=== PATIENT | female | born 1955 | race Caucasian/White ===

== ENCOUNTER 2022-04-13 13:39 | Outpatient (CLI) | payer MEDICARE, BC, SELFPAY ==
--- NOTE | 2022-04-13 14:00 | CRLHL7_ITS ---
For Patients: As a result of the Century Cures Act, medical imaging exams and procedure reports are released immediately into your electronic medical record. You may view this report before your referring provider. If you have questions, please contact your health care provider. BILATERAL SCREENING MAMMOGRAM WITH COMPUTER-AIDED DETECTION AND TOMOSYNTHESIS TECHNIQUE: CC and MLO views were obtained. These mammographic images have been obtained using full-field digital technique. These mammographic images were interpreted with the benefit of computer-aided detection. Breast Tomosynthesis was used in this interpretation. COMPARISON FILM: 03/18/21, 01/10/20, 11/22/18. FINDINGS: The breasts are almost entirely fatty IMPRESSION: There is no radiographic evidence for malignancy. ASSESSMENT: BI-RADS Category 1: Negative RECOMMENDATION: Routine screening mammogram in 1 year. A lay language report of this examination will be provided to the patient. Conner Valdez M.D. Diagnostic Radiologist [email or web address] [place]/Dictated by: Conner Valdez MD @ 04/14/2022 1:01:00 PM (Electronically Signed)
== END 2022-04-13 13:40 | disposition home or self-care (01) ==
PROVIDERS: PCP Internal Medicine; Visit Provider Internal Medicine
DX: Z12.31 Encounter for screening mammogram for malignant neoplasm of breast (principal)
CPT/HCPCS: 77063; 77067

== ENCOUNTER 2022-09-21 09:43 | Outpatient (REF) | payer MEDICARE, BC, SELFPAY ==
[2022-09-21 10:16] LABS: Basophils Percent Auto 0.3 % (0.0-3.0); Eosinophils Percent Auto 3.4 % (0.0-7.0); Hematocrit 42.7 % (33.0-51.0); Hemoglobin* 13.8 gm/dL (12.0-16.0); Lymphocytes Percent Auto 31.8 % (20-44); Mean Corpuscular HGB Conc 32 gm/dL (32-36); Mean Corpuscular Hemoglobin 30 pg (26-34); Mean Corpuscular Volume 94 fL (80-100); Monocytes Percent Auto 6.4 % (0.0-11.0); Neutrophils Percent Auto 58.1 % (42.0-72.0); Platelet Count* 263 K/uL (140-440); RDW Coefficient of Variation % 12.9 % (11.5-15.5); Red Blood Count 4.56 m/uL (4.00-5.20); White Blood Count* 3.27 K/uL (4.50-11.00)
[2022-09-21 10:18] LABS: Slide Review Reflex No
[2022-09-21 10:21] LABS: Iron* 87 ug/dL (37-170)
[2022-09-21 10:31] LABS: Percent Iron Saturation 28 % (20-50); Total Iron Binding Capacity 311 ug/dL (265-497)
[2022-09-21 10:39] LABS: Vitamin D 25 Hydroxy* 72 ng/mL (30-80)
[2022-09-21 10:58] LABS: Ferritin* 32.5 ng/mL (11.1-264.0)
[2022-09-21 11:14] LABS: Albumin* 4.3 g/dL (3.3-5.0); Chloride* 107 mmol/L (96-114)
[2022-09-21 11:15] LABS: Potassium* 4.9 mmol/L (3.6-5.1); Sodium* 140 mmol/L (135-149)
[2022-09-21 11:17] LABS: Aspartate Amino Transferase* 34 U/L (12-35); Bilirubin Direct* 0.2 mg/dL (0.0-0.5); Bilirubin Total* 0.5 mg/dL (0.1-1.5); Blood Urea Nitrogen* 14 mg/dL (7-30); Carbon Dioxide* 27 mmol/L (20-32); Creatinine* 0.8 mg/dL (0.5-1.5); Estimated Glomerular Filt Rate 81 ml/min; Total Protein* 7.3 g/dL (6.0-8.3)
[2022-09-21 11:18] LABS: Alanine Aminotransferase* 26 U/L (4-35); Alkaline Phosphatase* 88 U/L (40-150); Calcium* 9.5 mg/dL (8.4-10.6); Glucose* 95 mg/dL (60-115)
[2022-09-21 12:07] LABS: Vitamin B12* 389 pg/mL (243-894)
[2022-09-23 02:15] LABS: Immunoglobulin A 169 mg/dL (68-408)
[2022-09-23 08:53] LABS: Folate, Serum 10.1 ng/mL (>=5.9)
[2022-09-23 11:15] LABS: Tissue Transglut Ab IgA <2 U/mL (0-3)
== END 2022-09-21 09:44 | disposition home or self-care (01) ==
LOC: NPINS 09:43
PROVIDERS: PCP Internal Medicine; Visit Provider Internal Medicine Gastroenterology
DX: K52.3 Indeterminate colitis (principal); R19.7 Diarrhea, unspecified; K59.00 Constipation, unspecified; R12 Heartburn; Z86.010 Personal history of colon polyps; Z13.21 Encounter for screening for nutritional disorder; E78.5 Hyperlipidemia, unspecified
CPT/HCPCS: 80048; 80076; 82306; 82607; 82728; 82746; 82784; 83540; 83550; 84443; 85025; 86364; 86480

== ENCOUNTER 2022-10-21 07:35 | Outpatient (CLI) | payer MEDICARE, BC, SELFPAY ==
--- OUTSIDE RECORDS SUMMARY | 2022-10-22 06:29 | XMS_ITS | Continuity of Care Document ---
Author Name Unknown Organization [facility] Address [address] [address] [place] [address] Phone Care Team Providers Care [facility] Cook Name Role Phone Lei BOOGIE, Filomena Unavailable Unavailable Allergies, Adverse Reactions, Alerts Substance Reaction Status Criticality adhesive tape Rash Active No Information latex ItchingItching Active No Informatio n adhesive Active No Information WARNIN allergy(ies) could not be collected because the type is not supported. Please contact the source practice for further details. Medications Medication Instructions Dosage Effective Dates (start - stop) Status Comments alendronate 35 mg tablet take 1 tablet by oral route every week in the morning, at least 30 min before first food, beverage, or medication of day 35 MG - Active mesalamine 400 mg capsule (with delayed release tablets inside) take 3 capsule by oral route 2 times every day 1200 MG - Active Vitamin D3 1,000 unit capsule take 1 Capsule by Oral route once 1 Capsule - Active omeprazole 20 mg capsule,delayed release take 1 capsule by oral route 2 times every day before a meal 20 MG - Active MULTIVITAMIN (unknown strength) one tablet twice a day Not Available - Active CALCIO KARON (unknown strength) take 1 by Oral route 2 times every day Not Available - Active Ultra Berkley Plus 15 billion cell-170 mg capsule one twice a day - Active EPA-DHA 720 (unknown strength) 4 tablets once a day Not Available - Active bupropion HCl SR 150 mg tablet,12 hr sustained-release take 1 tablet by oral route 2 times every day 150 MG - Active Procedures Procedure Date New Level 4 Offic/outpt E&m Estab Low-mod 9 Routine Serum Collection Bld Ct; Hg/pltlt Ct Auto/compl 19 Comp Metabolic Panel Ferritin Bilirubin; Direct Iron Iron Binding Capacity Cyanocobalamin Vitamin D; 25 Hydroxy Colonoscopy Flex; W/remov Les- Colonoscopy Flex; W/bx 1/mx Level Iv-surg Path Gross/micro 18 Offic/outpt E&m Estab Mod-hi 2 18 Routine Serum Collection Gg; Iga, Igd, Igg, Igm, Ea Bld Ct; Hg/pltlt Ct Auto/compl 18 Magnesium Bilirubin; Direct Comp Metabolic Panel Offic/outpt E&m Estab Low-mod 7 Routine Serum Collection Iron Iron Binding Capacity Cyanocobalamin Folic Acid; Serum Ferritin Vitamin D; 25 Hydroxy Bilirubin; Direct Comp Metabolic Panel Bld Ct; Hg/pltlt Ct Auto/compl 17 Offic/outpt E&m Estab Low-mod 6 Offic/outpt E&m Estab Low-mod 6 Offic/outpt E&m Estab Low-mod 5 Routine Serum Collection Creatinine; Bld Urea Nitro; Rolando Colonoscopy Flex; W/bx 1/mx Level Iv-surg Path Gross/micro 14 Offic Cons New/estab Mod Routine Serum Collection Bld Ct; Hg/pltlt Ct Auto/compl 14 Hepatitis A Antibody; Igg & Ig 14 Ag-immunoassay; Hep B Surface 4 Comp Metabolic Panel Folic Acid; Serum Cyanocobalamin Iron Iron Binding Capacity Ferritin Ugi Endo; Dx W/wo Collec Specm 11 Advance Directives Directive Yes / No Effective Date File Name No Information Encounters Encounter Description Practice Location Reason(s) For Visit Diagnoses Date Provider Providers Copied on Encounter [facility], [address] [address], [place], [place], [id number], [place] tel:[phone] [facility] No Information 3 Lei Butt. [address] [facility], [facility] [address], [place], [place], [id number] , [place]. tel: [phone] [facility] Level 4 [facility], [address] [address], [place], [id number], [place] tel:[phone] [facility] GI Symptoms or Concerns (chief complaint) Indeterminate colitisDiarrhea, unspecified typeConstipation, unspecified constipation typeHeartburnPerson al history of colonic polyps 3 Lei Butt. [address] [facility], [facility] [address], [place], [place], [id number] , [place]. tel: [phone] Referring Provider: Referral Self. [facility], [address] [address], [place], [place], [id number], [place] tel:[phone] [facility] No Information 3 Lei Butt. [address] [facility], [address], [place], [place], [id number] , [place]. tel: [phone] [facility], [address] [address], [place], [place], [id number], [place] tel:[phone] [facility] No Information 3 Neto Ayala. [address] [facility], [address], [place], [place], [id number] , [place]. tel: [phone] [facility], [address] [address], [place], [id number], [place] tel:[phone] [facility] No Information 0 Lei Butt. [address] [facility], [facility] [address], [place], [id number] , [place]. tel: [phone] [facility], [address] [address], [place], [id number], [place] tel:[phone] [facility] Inflammatory bowel diseases (IBD) 9 Lei Butt. [address] [facility], [facility] [address], [place], [id number] , [place]. tel: [phone] Offic/outpt E&m Estab Low-mod [facility], [address] [address], [place], [id number], [place] tel:[phone] [facility] GI Symptoms or Concerns (chief complaint) Inflammatory bowel diseases (IBD)Personal history of colonic polypsDietary counseling and surveillance 9 Lei Butt. [address] [facility], [facility] [address], [place], [id number] , [place]. [phone] Referring Provider: Mckinley Randall, [address] [place] [address], [address]. tel:[phone] [facility], [address] [address], [place], [id number], [place] tel:[phone] [facility] Colorectal polypsPersonal history of colonic polypsOther specified diseases of intestineConstipati on, unspecifiedBenign neoplasm of ascending colonBenign neoplasm of ascending colonPersonal history of colonic polyps 8 Lei Butt. [address] [facility], [facility] [address], [place], [id number] , [place]. [phone] Referring Provider: Referral Self. [facility], [address] [address], [place], [id number], [place] tel:[phone] [facility] Leukopenia, unspecified type 8 Lei Butt. [address] [facility], [address], [place], [place], [id number] , [place]. tel: [phone] Offic/outpt E&m Estab Mod-hi 2 [facility], [address] [address], [place], [id number], [place] tel:[phone] [facility] GI Symptoms or Concerns (chief complaint) IBD (inflammatory bowel disease)Constipatio n, unspecified constipation typeDietary counseling and surveillance 8 Lei Butt. [address] [facility], [address], [place], [id number] , [place]. tel: [phone] Referring Provider: Referral Self. [facility], [address] [address], [place], [place], [id number], [place] tel:[phone] [facility] IBD (inflammatory bowel disease) 7 Lei Butt. [address] [facility], [address], [place], [place], [address] , [place]. tel: [phone] Offic/outpt E&m Estab Low-mod [facility], [address] [address], [place], [place], [id number], [place] tel:[phone] [facility] GI Symptoms or Concerns (chief complaint) IBD (inflammatory bowel disease)Dietary counseling and surveillance 7 Lei Butt. [address] [facility], [address], [place], [place], [address] , [place]. tel: [phone] Referring Provider: Referral Self. Offic/outpt E&m Estab Low-mod [facility], [address] [address], [place], [id number], [place] tel:[phone] [facility] GI Symptoms or Concerns (chief complaint) IBD (inflammatory bowel disease)Dietary counseling and surveillance 6 Lei Butt. [address] [facility], [address], [place], [address] , [place]. [phone] Referring Provider: Mckinley Randall, [address] [place], [address]. tel:[phone] Offic/outpt E&m Estab Low-mod [facility], [address] [address], [place], [id number], [place] tel:[phone] [facility] GI Symptoms or Concerns (chief complaint) IBD (inflammatory bowel disease)Dietary counseling and surveillance 6 Lei Butt. [address] [place] [address], [place], [place], [id number] , [place]. tel:[phone] Referring Provider: Mckinley Randall, [address] [place], [address]. tel:[phone] Offic/outpt E&m Estab Low-mod [facility], [address] [address], [place], [id number], [place] tel:[phone] [facility] GI Symptoms or Concerns (chief complaint) Ulcerative Colitis NosRectal bleedingAbdominal pain, right lower quadrantDietary Surveil/financial aid counselor 5 Carolina Puente. [address] [place] [address], [id number] , [place]. [phone] Referring Provider: Mckinley Randall, [address] [place], [address]. tel:[phone] [facility], [address] [address], [facility], [id number], [place] tel:[phone] [facility] Colon polypUlcerative Colitis NosBenign Neoplasm Colon Mar- 4 Lei Butt. [address] [place] [address] [place], [id number] , [place]. [phone] Referring Provider: Mckinley Randall, [address] [place], [address]. tel:[phone] [facility], [address] [address], [facility], [address], [place] tel:[phone] [facility] IBD 4 Lei Butt. [address] [facility], [facility] [address], [place], [id number] , [place]. tel: [phone] Offic Cons New/estab Mod [facility], [address] [address], [place], [id number], [place] tel:[phone] [facility] GI Symptoms or Concerns (chief complaint) IBDDiarrheaGenerali sed abdominal painRectal bleedingDietary Surveil/financial aid counselor 4 Lei Butt. [address] [facility], [facility] [address], [place], [id number] , [place]. tel: [phone] Referring Provider: Mckinley Randall, [address] [place] [address], [address]. tel:[phone] [facility] [place], [address] [address], [place], [id number], [place] tel:[phone] [facility] No Information 1 Lizeth Fernandes. [address] [facility], [facility] [address], [place], [id number] , [place]. tel: [phone] Referring Provider: Vaughn Lima, [address], [address]. tel:[phone] Family History Family Member Type Diagnosis Age At Onset Daughter Problem (finding) Asthma Daughter Problem (finding) Crohn's disease Sister Problem (finding) gallbladder disease Mother Problem (finding) Asthma Daughter Problem (finding) Alive and well Mother Problem (finding) Diverticular disease Sister Problem (finding) Colon polyps Mother Problem (finding) Irritable bowel syndrom e Father Problem (finding) Cancer, lung Sister Problem (finding) Diverticular disease Sister Problem (finding) Cancer, esophageal Sister Problem (finding) malignant neoplasm of o vary Mother Problem (finding) Colon polyps Son Problem (finding) Crohn's disease Sister Problem (finding) Cancer, lung Sister Problem (finding) cancer of colon Sister Problem (finding) Irritable bowel disease Immunizations Vaccine Date Status Comments SARS-COV-2 (COVID-19) vaccin e, mRNA, spike protein, LNP, preservative free, 100 mcg/0.5mL dose or 50 mcg/0.25mL dose administered Note: [facility] bi -directional interface ; Source: Other Registry SARS-COV-2 (COVID-19) vaccin e, mRNA, spike protein, LNP, preservative free, 100 mcg/0.5mL dose or 50 mcg/0.25mL dose administered Note: [facility] bi -directional interface ; Source: Other Registry SARS-COV-2 (COVID-19) vaccin e, mRNA, spike protein, LNP, preservative free, 100 mcg/0.5mL dose or 50 mcg/0.25mL dose administered Note: [facility] bi -directional interface ; Source: Other Registry tetanus toxoid, reduced diphtheria toxoid, and acellular pertussis vaccine, adsorbed administered Note: [facility] b i-directional interface ; Source: Other Registry tetanus and diphtheria toxoi ds, adsorbed, preservative free, for adult use (5 Lf of tetanus toxoid and 2 Lf of diphtheria toxoid) administered Note: [facility] bi-direct ional interface ; Source: Other Registry Engerix-B administered Note: [facility] bi-d irectional interface ; Source: Other Registry hepatitis B vaccine, unspeci fied formulation administered Source: Other Provid er Engerix-B administered Note: [facility] bi-d irectional interface ; Source: Other Registry hepatitis B vaccine, unspeci fied formulation administered Source: Other Provid er Engerix-B administered Note: [facility] bi-d irectional interface ; Source: Other Registry Hep B, adult, 3 dose administered Source: Other Provider Payers Payer name Insurance type Covered libertarian ID Authoriza tion(s) Medicare NGS MB [id number] [employer] Of [facility] [id number] Social History Type Description Quantity Date Captured Comments Alcohol Use Details Unknown Caffeine Use Details Unknown Tobacco Use Status No Information Mar-14-2023 Smoking Status No Information Sex Female Chief Complaint And Reason For Visit No Information Reason For Referral Reason For Referral No Information Plan Of Treatment Date Type Action Status Goal Lifestyle education regardin g diet completed Goal Lifestyle education regardin g diet completed Goal Lifestyle education regardin g diet completed Goal Lifestyle education regardin g diet completed Goal Lifestyle education regardin g diet completed Goal Lifestyle education regardin g diet completed Goal Lifestyle education regardin g diet completed Referral Ordered: Hepatic Function Panel Appointment date/timeframe: 09/27/2022 ordered Referral Ordered: Thyroid [place] Profile Appointment date/timeframe: 09/27/2022 ordered Referral Ordered: Folic Acid Appointment date/timeframe: 09/27/2022 ordered Referral Ordered: Iron/TIBC Appointment date/timeframe: 09/27/2022 ordered Referral Ordered: QuantiFERON TB Gold Plus Appointment date/timeframe: 09/27/2022 ordered Referral Ordered: EGD Appointment date/timeframe: 10/25/2022 ordered Referral Ordered: Vitamin D, 25-Hydroxy Appointment date/timeframe: 09/27/2022 ordered Referral Ordered: Vitamin B12 Serum Appointment date/timeframe: 09/27/2022 ordered Referral Ordered: BMP Appointment date/timeframe: 09/27/2022 ordered Referral Ordered: Ferritin Appointment date/timeframe: 09/27/2022 ordered Referral Ordered: CBC W/diff, Whole Blood Appointment date/timeframe: 09/27/2022 ordered Referral Ordered: Celiac: TTG IgA + Total IgA Appointment date/timeframe: 09/27/2022 ordered Referral Ordered: Vitamin B12 Appointment date/timeframe: 06/02/2019 ordered Referral Ordered: referred to 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 The patient was last seen in GI Clinic in March 2019. 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 This seemed to involve her rectosigmoid colon. She had her last colonoscopy in 2017, which revealed 2 sessile serrated adenomas and otherwise normal-appearing TI and colon. She also had sessile serrated adenoma in the cecum in 2013. The patient reports that she stopped taking mesalamine in 2019 around December of that year because she thought it was making her constipated. She has had baseline intermittent constipation for many years, however. The patient reports that she continues to have occasional constipation and occasional diarrhea, but does not have any consistent symptoms. She denies any rectal bleeding or abdominal pain or rectal urgency. She reports some occasional bloating. She reports that she does have chronic heartburn and she has been on omeprazole 20 mg twice daily for many years. She reports that she may have been told she had Fernandez's esophagus in the past, we have no record of this and she did not mention having Fernandez's esophagus previously. The patient reports her sister of esophageal cancer in February 2022. The patient reports her last upper endoscopy was at [facility] in 2010 or 2009 or 2011. GI Symptoms or Concerns The mina harrison is a 63-year-old female who is here for followup with indeterminate colitis diagnosed at the [facility] in 2010. The patient's intermittent colitis appeared to involve her rectosigmoid colon. Her last colonoscopy here was in June 2018 to the ileum and 2 sessile serrated adenomas were removed, but the terminal ileum and colon appeared otherwise normal and random colon biopsies throughout the colon were normal. She had a colonoscopy in 2013 that revealed inactive rectosigmoid inflammation. She also had a sessile serrated adenoma removed from the cecum in 2013. Her MR enterography from September 2016 did not reveal any active bowel inflammation. She reports she has overall been doing quite well on Lialda 4.8 g daily. She denies any GI symptoms at this time. She reports 1 to 2 formed bowel movements per day and denies any abdominal pain, rectal bleeding, diarrhea, rectal urgency or any other GI symptoms. She reports that she and her [place] GI Symptoms or Concerns The symp toms began 7 years ago. The symptoms are reported as being mild. The symptoms occur randomly. The location is lower colon. Aggravating factors include nothing. Relieving factors include lialda. She states the symptoms are chronic and are stable. The patient is 63-year-old female who is here for followup of indeterminate colitis. She was last seen in GI Clinic in April 2017. 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 Her disease seemed to involve the lower colon. Her last colonoscopy was in 2013 and showed inactive inflammation of the rectosigmoid colon. She also had a sessile-serrated adenoma removed from the cecum in 2013. Her last MR enterography was in September 2016. It did not reveal active inflammation. The patient reports she is overall doing well. She reports over the past 3 to 4 months, she has had some intermittent constipation that is relieved with MiraLax. She denies any significant diarrhea, rectal bleeding, abdominal pain, or GI Symptoms or Concerns The symp toms began 6 years ago. The symptoms are reported as being mild. The symptoms occur randomly. The location is colon. Aggravating factors include nothing. Relieving factors include lialda. She states the symptoms are chronic and are controlled. The patient is a 62-year-old female who is here for followup of inflammatory bowel disease. The patient was last seen in GI Clinic in March 2016. 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 Her last colonoscopy 2013 revealed some inactive inflammation in the rectosigmoid colon, but otherwise colon biopsies were unrevealing. She did have one small SSA removed from the cecum at that time. The patient does report that when she was initially diagnosed with indeterminate colitis that the inflammation was in the lower part of her colon. The patient's last MR enterography was in September 2016 and was unremarkable. The patient reports she is feeling well and denies any significant GI symptoms at this time. GI Symptoms or Concerns The symp toms began 5 years ago. The symptoms are reported as being mild. The symptoms occur randomly. The location is colon. Aggravating factors include nothing. Relieving factors include lialda. She states the symptoms are chronic and are controlled. The patient is 60-year-old female who is here for followup of indeterminate colitis. The patient was diagnosed with inflammatory bowel disease in 2010. She has most recently been on Lialda 4.8 g daily and is doing quite well. She denies any significant GI symptoms at this time. She reports she is having one to three formed bowel movements per day. She denies any abdominal pain or rectal bleeding or rectal urgency or unintentional weight loss. She reports rare nausea, but no vomiting. She denies any dysphagia or any other GI symptoms. She denies taking NSAIDs. She reports she is taking calcium and vitamin D. She reports that her primary care provider checked her vitamin D level relatively recently. GI Symptoms or Concerns The symp toms began 5 years ago. The symptoms are reported as being mild. The symptoms occur randomly. The location is rectosigmoid colon. Aggravating factors include nothing. Relieving factors include lialda. She states the symptoms are chronic and are stable. The patient is a 60-year-old female who is here for followup of inflammatory bowel disease. I last saw patient in GI Clinic in January 2014. She was also seen by Cindi Aguirre in July 2014. Patient was diagnosed with inflammatory bowel disease in 2010. It was unclear if she had ulcerative colitis or Crohn's disease. She reports that when she was seen at the [facility], they were unsure which one she had. It is unclear why Crohn's disease was brought up. She denies any perianal disease or fistulas or abscesses. Previous to her first visit with us, patient had been previously treated with naltrexone and prednisone tapers. After seeing us, we performed a CT enterography that revealed possible rectosigmoid inflammation. S GI Symptoms or Concerns Alize Martinez is a pleasant 59-year-old woman with inflammatory bowel disease, thought to have ulcerative colitis diagnosed in 2010 who presents to clinic for evaluation of abdominal pain and rectal bleeding.The patient reports a two-week episode between and june of bloating and abdominal pain across her lower quadrants. She also noticed red blood per rectum during this 2 week period with rectal itching. She was not experiencing any diarrhea however. Her symptoms resolved spontaneously, at that time she did make an appointment here in [place] [facility]. On top of her bloating and lower abdominal pain, the patient does describe a sharp right lower quadrant sensation. It comes on in unpredictable fashion and then does turn into a dull pain. Her pain does not radiate anywhere. She has not had any fevers, nausea, or vomiting. She does mention having an occasional mouth sore a couple of months ago which has since resolved. The patient is maintaining her weight.M GI Symptoms or Concerns The symp toms began 3 years ago. The symptoms are reported as being moderate. The symptoms occur daily. Aggravating factors include nothing. Relieving factors include prednisone 40 mg. She states the symptoms are chronic and are uncontrolled. The patient is a 58-year-old female who is here for evaluation of inflammatory bowel disease. The patient reports she was diagnosed with inflammatory bowel disease in 2010. She reports she was eventually seen at the [facility] who confirmed inflammatory bowel disease, but could not differentiate between Crohn's disease and ulcerative colitis. The patient reports she has only been treated with naltrexone and prednisone tapers intermittently. She reports that she has had ongoing symptoms since August 2013. She has been on two eight-week prednisone tapers. She reports that she tends to feel better on a higher dose of prednisone, but when she gets down to 20 mg of prednisone daily she has recurrence of symptoms. She reports she was last o Functional Status Date Functional Assessmen t No Information Instructions Date Instruction Additional Infor krishnahenrry -Continue omeprazole 20 mg twice daily-Will request results of last EGD reportedly performed at [facility] in 2009 or 2010-EGD to check for Fernandez's esophagus, with duodenal biopsies Related to Heartburn -Labs as ordered-Vanessa robin did not want to restart mesalamine at this time and would like to wait for colonoscopy results-Colonoscopy with double prep with TI eval and random colon biopsies for dysplasia surveillance-MR enterography to assess for small bowel disease-Avoid NSAIDs-Calcium and vitamin D-Patient has declined any vaccines (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)-Miralax as needed for inlxsrevibvh-Pwdoae-hp in 2 months, after all testing completed Related to Indeterminate colitis -Repeat colonoscopy with double prep with TI eval and random colon biopsies in 06/2023 Related to Personal history of colonic polyps -Labs as ordered-Con tinue lialda 4.8 grams daily-Avoid NSAIDs-Calcium and vitamin D-Patient declined any vaccines (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)-Miralax as needed for gnraoqrgyukd-Hoziga-bu in 1 year Related to Inflammatory bowel diseases (IBD) Lifestyle education regarding di et Related to Dietary counseling and surveillance Colon Cancer Prevention Related to Colorectal polyps Colon Polyps Related to Color ectal polyps -Labs as ordered-Con tinue lialda 4.8 grams daily-Avoid NSAIDs-Calcium and vitamin D-Patient declined any vaccines (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)-Repeat colonoscopy with double prep with TI intubation and random colon biopsies due to new intermittent constipation for 3-4 months, history of cecal SSA in 2013, and to reassess microscopic disease extent-Miralax as needed for eowxjglsxheg-Wqxvkz-rx in 2 months, after colonoscopy Related to IBD (inflammatory bowel disease) Lifestyle education regarding di et Related to Dietary counseling and surveillance -Labs as ordered-Con tinue lialda 4.8 grams daily-MRE to reasssess for active bowel inflammation in 1 year-Avoid NSAIDs-Calcium and vitamin D-Patient declined any vaccines (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)-Repeat colonoscopy with TI intubation and random colon biopsies in fall 2018 due to history of cecal SSA in 2013 and to reassess microscopic disease pbbgkr-Woidmf-lm in 1 year Related to IBD (inflammatory bowel disease) Lifestyle education regarding di et Related to Dietary counseling and surveillance -Continue lialda 4.8 grams daily-MRE to reasssess for active bowel inflammation in 6 months-Avoid NSAIDs-Calcium and vitamin D-Patient declined any vaccines (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)-Follow-up in 6 months Related to IBD (inflammatory bowel disease) Lifestyle education regarding di et Related to Dietary counseling and surveillance -Continue lialda 4.8 grams daily-MRE to reasssess for active bowel inflammation-Avoid NSAIDs-Calcium and vitamin D-Patient declined any vaccines (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)-If MRE shows active inflammation in the distal colon again, then would consider flex sig with biopsies for further zzalmyjmek-Fcrpvd-ll in 2 months Related to IBD (inflammatory bowel disease) Lifestyle education regarding di et Related to Dietary counseling and surveillance MRI Enterography WIT HOUT And WITH Contrast Lifestyle education regarding di et Related to Dietary surveillance and counseling Colon Cancer Prevention Related to Colon polyp Colon Polyps Related to Colon polyp -Labs as ordered-Sto infectious studies-CT enteroraphy-Colonoscopy with TI and colon biopsies-Lialda 4.8 grams daily-Discontinue naltrexone-Avoid NSAIDs-Calcium and vitamin D-Patient declined influenza and pneumovax vaccines-Bone density scan in near jlgxwb-Ugjccz-qx in 1 month Related to Rectal bleeding Abdomen and Pelvis CT WITH Contr ast Related to Colitis Unspecified/IBD Colonoscopy Related to Colit is Unspecified/IBD Lifestyle education regarding di et Related to Dietary surveillance and counseling Abdomen and Pelvis CT WITH Contr ast Colonoscopy Assessments Type Assessment Date No Information Patient Care Teams Name Effective Dates (start - stop) Status Members No Information
== END 2022-10-21 07:36 | disposition home or self-care (01) ==
LOC: NFLDREF 10-22 06:27
PROVIDERS: PCP Internal Medicine; Referring Provider Internal Medicine; Visit Provider Internal Medicine
DX: E78.5 Hyperlipidemia, unspecified (principal)
CPT/HCPCS: 80061

== ENCOUNTER 2023-04-04 09:15 | Outpatient (RCR) | payer MEDICARE, BC, SELFPAY ==
--- NOTE | 2023-02-16 11:39 | PT.OPEX ---
PT [facility] Eval PT [facility] Outpatient Eval Start: 02/15/23 07:54 Freq: Status: Active Protocol: Document 02/15/23 07:54 AMS (Rec: 02/15/23 14:45 AMS [id number]) E-signed By Chantell Gann PT Physical Therapy Outpatient Evaluation Insurance Information Insurance Name Medicare B,Blue Cross/Blue Shield Medical Diagnosis Spondylosis without myelopathy or radiculopathy, lumbar region Right lumbar radiculopathy Treating Diagnosis Low back pain, unspecified Lumbar radiculopathy Muscle weakness Right hip pain Referring MD Ad Washington Subjective Subjective Alize returns for follow-up evaluation of pain in her low back, hip and thigh. She has a history of chronic low back pain that has progressed to involve her anterior hip, groin, and thigh over the past couple of months. She now localizes pain to the low back and states that it can radiate into her lateral hip anterior hip and anterior thigh down to the knee. Symptoms are aggravated by movement but can be present with both sitting and weight- bearing activities. She denies any history of injury and has no associated numbness or tingling. She has been taking ibuprofen and Tylenol on an as-needed basis for pain control, but symptoms are not improving. -Ad [place], 01/26/23, confirmed by patient Patient presents to physical therapy with 3.5-month history of low back pain and right hip pain. She has had chronic low back pain for her whole adult life, but the pain is now radiating down her anterior thigh. She also localizes the pain to the right anterior groin, wrapping around to the lateral hip just posterior to the greater trochanter. Pt states it feels like a groin pull. Denies catching or locking sensations , but endorses episodes of hip feeling like it will give way. The symptoms started insidiously without any trauma or history to the low back/ hip. She describes the pain as aching, but it can also be shooting or sharp. PMH includes bilateral knee replacement 10 years ago, osteopenia, and latex allergy. Aggravating factors include walking, bending, lifting, and going up and down stairs. Symptoms are improving, could barely walk when symptoms first presented. Denies numbness and tingling sensations. With walking farther than 8-10 blocks, pain will radiate down to anterior knee. Easing factors include icing, heating, THC gummies every night for sleep, Advil occasionally (knows she is not supposed to take this due to IBS but does sometimes), etc and chiropractor for her back. Sleep is unaffected due to THC gummies. Not currently exercising, but before symptoms, she enjoyed walks with her dogs a few times per day and did swim aerobics at the [facility] [facility]. She would like to return to these activities. Pain Comments 7/10 at worst, 2-3/10 at best Date of Last Physician Visit 01/26/23 Current Work Status Retired Precautions Treatment Precautions/Contraindications Osteopenia, latex and adhesive allergy Weight Bearing Status Full Weight Bearing Therapy Limitations/Systems Review Not Limited Objective Other/Pertinent Objective IMAGING: AP and lateral lumbar spine x- rays performed 11/21/2022 were reviewed. These demonstrate mild scoliosis of the lumbar spine with mild to moderate multilevel degenerative changes. No acute osseous abnormalities. AP pelvis and cross-table lateral x-rays of the right hip performed 11/21/2022 were reviewed. These demonstrate mild degenerative changes of both hips with moderate degenerative changes of the visualized aspects of the lumbar spine. No acute osseous abnormalities. Specifically, there is no cortical thickening involving the proximal femur other signs of for proximal femoral stress fracture. -Jay Jay Washington, 01/26/23 Posture Assessment: Mildly forward flexed posture at thoracic spine Gait Assessment: Patient ambulates with normal, heel- toe gait, no foot drop noted or antalgic gait. BALANCE Single leg stance: 10+ seconds bilaterally FUNCTIONAL MOBILITY Double leg squat: WNL, right anterior groin pain noted at 45 deg Step down/SL squat: Not assessed LUMBAR ROM Flexion: 100%, pain-free Extension: 100%, pain-free Right Sidebendin%, pain- free Left Sidebendin%, pain- free Right rotation: 100%, pain- free Left rotation: 100%, pain-free REPEATED MOVEMENTS: Lumbar flexion: No change in symptoms Lumbar extension: No change in symptoms HIP ROM (R/L) Flexion: 110*/110, *pain at end range passively and actively Extension: 10/10 Internal Rotation: 15/15 External Rotation: 35/35 Abduction: WNL LE MMT Hip flexion (seated): R 2/5 L 5/5; able to perform standing september Hip Extension: R 5/5 L 5/5 Hip abduction: R 4/5 L 5/5 Hip adduction: R 5/5 L 5/5 Knee extension: R 5/5 L 5/5 Knee Flexion: R 5/5 L 5/5 Dorsiflexion/heel walk: R 5/5 L 5/5 Plantarflexion (unilateral heel raises): R 10 reps, L 15 reps Great Toe Extension: R 5/5 L 5 /5 Abdominal Strength: No pain with resisted sit up MYOTOMES Hip flexion (L2): R 2/5 L 5/5 Knee extension (L3): R 5/5 L 5 /5 Dorsiflexion/heel walk (L4): R 5/5 L 5/5 Great Toe Extension (L5): R 5/ 5 L 5/5 Plantarflexion/toe walk (S1):R 4/5 L 4/5 DERMATOMES Not assessed formally JOINT MOBILITY/PALPATION TTP noted just posterior to greater trochanter, over ASIS, and lateral superior thigh. No TTP with lumbar posterior- anterior spring testing, mobility WNL. No TTP over buttocks/gluteals or lumbar paraspinals. SPECIAL TESTS -Straight leg raise: - -Crossed straight leg raise: - -Slump test: - SI/HIP tests -KRISH: + right for groin/ lateral hip pain -FADIR: + right for groin/ lateral hip pain -Scour: - -Log roll: - -Stinchfield's: + right for groin/lateral hip pain -30-second SLS: + for right groin pain -Femoral nerve tension test: + right TX: Patient was educated on anatomy, physiology as it relates to current condition and HEP with use of handout/ [employer]. Patient verbalizes understanding and agrees with POC/goals Education: -Soreness rules with goal of symptoms returning to baseline within 24 hours and by that evening Pt educated in the following exercises to improve range of motion, tissue tolerance, and/ or strength with verbal/ tactile cues as necessary: Access Code: [email or web address] URL: [email or web address] Date: 02/15/2023 Prepared by: Chantell Gann Exercises - Sidelying Femoral Nerve Gary - Top Leg - 1 x daily - 7 x weekly - 3 sets - 5-7 reps - Long Sitting Isometric Hip Abduction with Ball at Wall - 1 x daily - 7 x weekly - 3 sets - 30-45 secibds hold - Supine September - 1 x daily - 4 x weekly - 3 sets - 10 reps Functional Test Performed & Score LEFS: 32/80, 40% Assessment Assessment/Impression Pt is a 67 -year-old female who presents with concerns of chronic midline low back pain with acute radiating right groin and thigh pain and moderate to high severity and irritability. Signs and symptoms are likely indicating / consistent with potential L2-L3 lumbar radiculopathy and potential coexisting intra- articular hip pathology. Pain radiates from anterior groin to lateral hip and down the anterior thigh when she walks longer than 8-10 blocks. On exam, patient also demonstrates notable objective findings including full and pain-free lumbar ROM, positive femoral nerve tension and intra-articular hip tests, significantly decreased hip strength, specifically of the hip flexors (L2 myotome), and pain with short-lever hip abduction and active and passive hip flexion, leading to difficulties with walking more than 8-10 blocks, water aerobics, squatting, lifting, going up and down stairs, running, and rolling in bed. Pt demonstrates tendency to substitute hip flexors for gluteus medius. Does not demonstrate strong directional preference during session; unable to reproduce anterior thigh pain with exception of femoral nerve tension test. Discussed soreness guidelines for return to short distance walking and gentle aerobic activity like recumbent biking as symptoms allow. Patient is appropriate for skilled physical therapy services to address the above deficits. Pt was agreeable with plan of care and goals established. Primary Functional Limitations walking more than 8-10 blocks, water aerobics, squatting, lifting, going up and down stairs, standing for longer than 1 hour, running, and rolling in bed Plan of Care Rehabilitation Potential Good Physical Therapy Goals In 2 sessions: 1. Pt will demonstrate consistent HEP compliance to ensure progress in reaching established goals during course of care. In 8-12 sessions: 2. Patient will walk > 1 mile with <2/10 symptoms to allow for return to recreational activities. 3. Patient will stand for > 1 hour with <2/10 symptoms to allow for return to walking longer distances. 4. Patient will improve LEFS by 20% to demonstrate meaningful improvement in symptoms. 4. Coordination/Communication With Referral Source Treatment Plan/Direct Interventions Gait Training,Joint Mobilization,Manual Therapy, Neuromuscular Re-ed,Self-Care/ Home Management,Therapeutic Activities,Therapeutic Exercises,Traction (Mechanical ) Frequency/Duration 1x/week for 12 weeks Patient Will Be Discharged From Therapy Completion of LTG(s), Independent w/HEP, Independently Progressing Evaluation Billing Untimed Code Treatment Minutes 30 Complexity Moderate Certification Information Initial Certification Date 02/15/23 Ending Certification Date 05/11/23 Provider Signature Shows Agreement With POC & Medical Necessity Physician Signature & Date Requested Please Sign/Date Here Physician Comment/Change : Physician NPI Number #
== END 2023-04-24 09:42 | disposition home or self-care (01) ==
PROVIDERS: PCP Internal Medicine; Visit Provider Orthopaedic Surgery
DX: M47.816 Spondylosis without myelopathy or radiculopathy, lumbar region (principal); M54.16 Radiculopathy, lumbar region; M54.50 Low back pain, unspecified; M62.81 Muscle weakness (generalized); M25.551 Pain in right hip; Z51.89 Encounter for other specified aftercare
CPT/HCPCS: 97110; 97112; 97140; 97162

== ENCOUNTER 2023-05-24 11:46 | Outpatient (REF) | payer MEDICARE, BC, SELFPAY ==
[2023-05-24 12:22] LABS: Basophils Percent Auto 0.3 % (0.0-3.0); Eosinophils Percent Auto 5.4 % (0.0-7.0); Hematocrit 38.7 % (33.0-51.0); Hemoglobin* 12.7 gm/dL (12.0-16.0); Lymphocytes Percent Auto 28.3 % (20-44); Mean Corpuscular HGB Conc 33 gm/dL (32-36); Mean Corpuscular Hemoglobin 32 pg (26-34); Mean Corpuscular Volume 97 fL (80-100); Monocytes Percent Auto 8.4 % (0.0-11.0); Neutrophils Percent Auto 57.6 % (42.0-72.0); Platelet Count* 228 K/uL (140-440); RDW Coefficient of Variation % 12.5 % (11.5-15.5); Red Blood Count 3.99 m/uL (4.00-5.20); White Blood Count* 2.97 K/uL (4.50-11.00)
[2023-05-24 12:31] LABS: Slide Review Reflex No
[2023-05-24 13:21] LABS: Albumin* 4.2 g/dL (3.3-5.0)
[2023-05-24 13:24] LABS: Alanine Aminotransferase* 23 U/L (4-35); Alkaline Phosphatase* 82 U/L (40-150); Aspartate Amino Transferase* 33 U/L (12-35); Bilirubin Direct* 0.1 mg/dL (0.0-0.5); Bilirubin Total* 0.4 mg/dL (0.1-1.5); Total Protein* 7.2 g/dL (6.0-8.3)
[2023-05-24 14:09] LABS: Vitamin B12* 252 pg/mL (243-894)
[2023-05-24 14:49] LABS: Vitamin D 25 Hydroxy* 55 ng/mL (30-80)
== END 2023-05-24 11:47 | disposition home or self-care (01) ==
LOC: NPINS 11:46
PROVIDERS: PCP Internal Medicine; Visit Provider Internal Medicine Gastroenterology
DX: R05.3 Chronic cough (principal); K52.3 Indeterminate colitis; R12 Heartburn; Z86.010 Personal history of colon polyps; Z13.21 Encounter for screening for nutritional disorder; F41.1 Generalized anxiety disorder; E66.9 Obesity, unspecified; E78.5 Hyperlipidemia, unspecified; M85.80 Other specified disorders of bone density and structure, unspecified site; Z98.84 Bariatric surgery status
CPT/HCPCS: 80076; 82306; 82607; 85025

== ENCOUNTER 2023-06-26 10:30 | Outpatient (CLI) | payer MEDICARE, BC, SELFPAY ==
--- NOTE | 2023-06-26 11:00 | CRLHL7_ITS ---
For Patients: As a result of the Century Cures Act, medical imaging exams and procedure reports are released immediately into your electronic medical record. You may view this report before your referring provider. If you have questions, please contact your health care provider. Indication: Chronic cough Technique: Noncontrast CT chest Please note that all CT scans at this facility use dose modulation, iterative reconstruction, and/or weight-based dosing when appropriate to reduce radiation dose to as low as reasonably achievable. Comparison: 08/05/2014 CT abdomen and pelvis Findings: Right thyroid lobe nodule is present. Atherosclerotic changes are present. Subcentimeter mediastinal lymph nodes noted. Postoperative changes to the stomach. Adrenal glands normal. Degenerative changes are present at both shoulders. No pulmonary nodule. No airspace disease or fibrosis. No effusion or CHF. No pneumothorax. The airways are patent. Degenerative disc disease thoracic spine. No fracture. Impression: No airspace disease or fibrosis. No adenopathy. No endobronchial lesion. Right thyroid lobe nodule. Ultrasound thyroid recommended for further characterization. Please note that all CT scans at this facility use dose modulation, iterative reconstruction, and/or weight-based dosing when appropriate to reduce radiation dose to as low as reasonably achievable. Dictated by Conner Valdez MD @ 06/26/2023 12:37:10 PM (Electronically Signed)
--- NOTE | 2023-06-26 11:30 | CRLHL7_ITS ---
For Patients: As a result of the Cures Act, medical imaging exams and procedure reports are released immediately into your electronic medical record. You may view this report before your referring provider. If you have questions, please contact your health care provider. BILATERAL SCREENING MAMMOGRAM WITH COMPUTER-AIDED DETECTION AND TOMOSYNTHESIS TECHNIQUE: CC and MLO views were obtained. These mammographic images have been obtained using full-field digital technique. These mammographic images were interpreted with the benefit of computer-aided detection. Breast Tomosynthesis was used in this interpretation. COMPARISON FILM: 04/13/22, 03/18/21, 01/10/20. FINDINGS: There are scattered areas of fibroglandular density IMPRESSION: There is no radiographic evidence for malignancy. ASSESSMENT: BI-RADS Category 1: Negative RECOMMENDATION: Routine screening mammogram in 1 year. A lay language report of this examination will be provided to the patient. Conner Valdez M.D. Diagnostic Radiologist [email or web address] TORO/laith / be/Dictated by: Conner Valdez MD @ 06/26/2023 12:29:00 PM (Electronically Signed)
== END 2023-06-26 10:31 | disposition home or self-care (01) ==
LOC: CT 10:31
PROVIDERS: PCP Internal Medicine; Visit Provider Internal Medicine
DX: Z12.31 Encounter for screening mammogram for malignant neoplasm of breast (principal); R05.3 Chronic cough; E04.1 Nontoxic single thyroid nodule
CPT/HCPCS: 71250; 77063; 77067

== ENCOUNTER 2023-07-04 14:34 | Outpatient (CLI) | payer MEDICARE, BC, SELFPAY ==
--- NOTE | 2023-07-04 15:00 | CRLHL7_ITS ---
For Patients: As a result of the Cures Act, medical imaging exams and procedure reports are released immediately into your electronic medical record. You may view this report before your referring provider. If you have questions, please contact your health care provider. CLINICAL HISTORY: Incidental right thyroid nodule TECHNIQUE: Medina-scale and color Doppler images were acquired of the thyroid gland. FINDINGS: The right thyroid lobe measures 4.3 x 1.7 x 2.2 centimeters left thyroid lobe measures 3.9 x 1.0 x 1.2 centimeters Heterogeneous solid nodule in the right thyroid lobe measuring 2.2 x 1.6 by 1.9 centimeters with microcalcifications TR5. Hypoechoic irregular left thyroid nodule measuring 0.6 x 0.8 x 0.6 centimeters with microcalcifications TR5. Left 0.7 x 1.5 x 0.8 centimeter slightly irregular marginated heterogeneous left thyroid nodule TR 4. IMPRESSION: Multinodular thyroid. ACR TI-RADS [email or web address] TR1: Benign No FNA TR2: Not Suspicious No FNA TR3: Mildly Suspicious FNA if greater than or equal to 2.5 cm Follow if greater than or equal to 1.5 cm TR4: Moderately Suspicious FNA if greater than or equal to 1.5 cm Follow if greater than or equal to 1 cm TR5: Highly Suspicious FNA if greater than or equal to 1 cm Follow if greater than or equal to 0.5 cm Dictated by Mariela Subramanian MD @ 07/06/2023 1:11:52 PM (Electronically Signed)
== END 2023-07-04 14:35 | disposition home or self-care (01) ==
PROVIDERS: PCP Internal Medicine; Visit Provider Internal Medicine
DX: E04.1 Nontoxic single thyroid nodule (principal)
CPT/HCPCS: 76536

== ENCOUNTER 2023-07-25 10:52 | Outpatient (CLI) | payer MEDICARE, BC, SELFPAY ==
--- OUTSIDE RECORDS SUMMARY | 2023-07-25 10:58 | XMS_ITS | Clinical Summary ---
Author Name Unknown Organization [facility] Address [place], [place] [address] Care Team Providers Care Salesperson Surgical Appliances Name Role Phone Mckinley Reich MD Primary Care Provider [phone] Allergies Active Allergy Reactions Criticality Noted Date Comments Tolterodine Rash 12/03/2007 Patch; skinrash 11/16 allergy is from the adhesive on the patch , not the medication. Medications Medication Sig Dispensed Refills Start Date End Date Status FISH OIL 500 MG CAP 6 per day 0 12/03/2007 Activ e buPROPion (WELLBUTRIN XL) 150 mg Extended-Release tablet 0 12/28/2019 Active simvastatin (ZOCOR) 40 mg tablet Take 1 tablet by mouth once daily. 0 02/11/2020 Active omeprazole (PRILOSEC) 20 mg Delayed-Release capsule Take 1 capsule by mouth 2 times daily before meals. 0 03/03/2020 Active ketoconazole 2% topical (NIZORAL) cream MASSAGE INTO FEET TWICE DAILY UNTIL RESOLVED THEN REPEAT NEEDED 0 12/23/2020 Active Active Problems Problem Noted Date Diagnosed Date Tendonitis of left gluteus minimus 07/04/2016 Obesity, unspecified 12/03/2007 Dysthymic disorder 12/03/2007 Routine general medical exam ination at a health care facility 12/03/2007 Overview: Mammo 12/06/05 Pap 12/05/05 colonoscopy Other atopic dermatitis and related conditions 0 02/28/2007 Overview: Eye lids Unspecified nasal polyp 02/28/2007 Immunizations Name Administration Dates Next Due Td (Age >=7 Years) 07/18/1995 Tdap 12/03/2007 Family History Medical History Relation Name Comments Other Child chrohns disease Cancer-breast Maternal Aunt Alcohol/Drug Maternal Grandfather aunts a nd uncles also Alcohol/Drug Maternal Grandmother Cancer-breast Maternal Grandmother Allergies Mother Diabetes Mother Heart Disease Mother CHF Hyperlipidemia Mother Psychiatric illness Mother siblings also Other Son lupus Anesthesia Problem No Family History Blood Disease No Family History Relation Name Status Comments Child Father Alive Maternal Aunt Maternal Grandfather Maternal Grandmother Mother (Age 77) 11/2005; [place] F Son Social History Tobacco Use Types Packs/Day Years Used Date Smoking Tobacco: Never Smokeless Tobacco: Never Tobacco Cessation:Counseling Given: Yes Alcohol Use Standard Drinks/Week Comments Yes 0 (1 standard drink = 0.6 oz pur e alcohol) occas Sex and Gender Information Value Date Recorded Sex Assigned at Not on file Gender Identity Not on file Sexual Orientation Not on file Obstetrics History Para Term AB IAB SAB Ectopic Multiple Livin g Live Births 5 5 5 Date Outcome GA Total Labor Labor/2nd/3rd Weight Sex Delivery Anes PTL Jennyfer A1 A5 Name Cl in Para Para Para Para Para Last Filed Vital Signs Vital Sign Reading Time Taken Comments Blood Pressure 135/84 12/08/2021 10:07 AM CDT Pulse 71 01/26/2022 3:38 PM CDT Temperature 36.7 ??C (98 ??F) 01/26/2022 3:38 PM CDT Respiratory Rate - - Oxygen Saturation 96% 01/26/2022 3:38 PM CDT Inhaled Oxygen Concentration - - Weight 97.5 kg (215 lb) 06/10/2020 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 Height 164.6 cm (5' 4.8) 03/11/2016 9:37 AM CDT Body Mass Index 36 03/11/2016 9:37 AM CDT Plan of Treatment Health Maintenance Due Date Last Done Comments Depression screening for age 12+ 1968 Hepatitis C screening for age 18-79 1974 Zoster (shingles) series for age 50+ (1 of 2) 2006 Mammogram for age 45-75 04/01/2009 04/01/20 08, 12/03/2007, 02/22/2007 Lipids for age 45-75 12/19/2010 12/19/2005 BMI (ht and wt on same day) for age 18+ 03/11/2017 03/11/2016 Tetanus booster 12/02/2017 12/03/2007, 07/18/1995 Colonoscopy through age 75 01/29/2018 01/30/2008 DEXA/DXA scan for age 65+ 2021 Medicare Wellness for age 65+ 2021 Pneumococcal series for age 65+ (1 of 1 - PCV) 2021 COVID-19 vaccine series (4 - 2022- season) 2023 08/03/2021, 10/30/2020, 10/02/2020 Influenza for age 65+ 03/17/2023 Tdap Completed 12/03/2007 Care Teams Salesperson Surgical Appliances Relationship Specialty Start Date End Date Mckinley Reich MD [address] [place] [address] PCP - General Emergency Medicine 07/04/16
--- NOTE | 2023-07-25 11:15 | CRLHL7_ITS ---
For Patients: As a result of the Century Cures Act, medical imaging exams and procedure reports are released immediately into your electronic medical record. You may view this report before your referring provider. If you have questions, please contact your health care provider. INDICATION: 68-year-old female. Multinodular goiter. Dominant right thyroid lobe nodule identified on a recent ultrasound July 04, 2023. A right thyroid lobe nodule was described on a recent noncontrast chest CT June 26, 2023. Ultrasound-guided fine-needle aspiration/biopsy recommended for the dominant right-sided thyroid lobe nodule. Informed consent was obtained. Benefits and risks were discussed. The patient agreed to proceed. The risks included pain, bleeding, infection, and the possibility of an unsuccessful or nondiagnostic biopsy. The patient agreed to proceed. [place] Protocol: A. Pre-procedure verification complete: Yes 1-relevant information/documentation available, reviewed and properly matched to the patient; 2-consent accurate and complete, 3-equipment and supplies available. B. Site marking complete: Yes Site marked if not in continuous attendance with patient. C. TIME OUT completed: Yes Time Out was conducted just prior to starting procedure to verify the eight required elements: 1-patient identity, 2-consent accurate and complete, 3-position, 4-correct side/site marked (if applicable), 5-procedure, 6-relevant images/results properly labeled and displayed (if applicable), 7-antibiotics/irrigation fluids (if applicable), 8-safety precautions, 9-laboratory results were reviewed. A dominant heterogeneous solid nodule in the right thyroid lobe measures 2.2 x 1.6 x 1.9 cm and contains microcalcifications. This is the nodule in question and will be biopsied. Utilizing sterile technique and 1 percent lidocaine for local anesthetic, utilizing a series of five 25-gauge needles, each needle was advanced into the dominant right thyroid lobe nodule. Five passes were made. No immediate complications. No subsequent imaging. IMPRESSION: Technically successful fine-needle aspiration/biopsy of a dominant 2.2 x 1.6 x 1.9 cm mid inferior right thyroid lobe nodule with microcalcifications. The final pathology is pending. Dictated by Garcia Powell MD @ 07/25/2023 3:37:28 PM (Electronically Signed)
== END 2023-07-25 10:53 | disposition home or self-care (01) ==
LOC: US 10:54
PROVIDERS: PCP Internal Medicine; Visit Provider Internal Medicine
DX: E04.2 Nontoxic multinodular goiter (principal)
CPT/HCPCS: 10005; 88173

== ENCOUNTER 2023-09-25 07:53 | Outpatient (CLI) | payer MEDICARE, BC, SELFPAY ==
--- NOTE | 2023-09-25 08:15 | US_ITS ---
Patient: JARRETT OGDEN Facility:?[facility] Patient ID:?[id number] Site Patient ID:?[id number]. Site :?[id number] Study:?US-Thyroid Procedure Dr. Valdez to read-09/25/2023 10:05:26 AM Ordering Physician:ADRIANA Final Report: INDICATION : TR 4 nodule left thyroid lobe, TR 5 nodule left thyroid lobe. Previous biopsy TR 5 nodule right thyroid lobe. TECHNIQUE : Ultrasound guided fine needle aspiration of left thyroid nodule x2. Comparison : Right thyroid lobe FNA 07/25/2023. Thyroid ultrasound 07/04/2023. FINDINGS : PROCEDURE: After the informed consent and time-out, multiple fine needle aspirations were obtained from the thyroid nodule. Fine needle performed. 25 gauge needles were used. TR 5 8 millimeter nodule and TR 4 1.5 cm nodule both biopsied. Lidocaine was used for local anesthesia. The preliminary cytology was adequate for interpretation. Real-time imaging was used for guidance and needle placement. Post imaging ultrasound demonstrates no immediate complication. IMPRESSION : Successful fine needle aspiration of left thyroid lobe nodules. Dictated by Conner Valdez MD @ 09/25/2023 11:27:15 AM Signed by:?Conner Valdez MD @09/25/2023 11:27:15 AM (Electronic Signature)
== END 2023-09-25 07:54 | disposition home or self-care (01) ==
LOC: US 07:54
PROVIDERS: PCP Internal Medicine; Visit Provider Surgery
DX: E04.1 Nontoxic single thyroid nodule (principal)
CPT/HCPCS: 10005; 88173

== ENCOUNTER 2023-10-10 09:52 | Outpatient (REF) | payer MEDICARE, BC, SELFPAY ==
[2023-10-10 10:39] LABS: Blood Urea Nitrogen* 18 mg/dL (7-30); Creatinine* 0.8 mg/dL (0.5-1.5); Estimated Glomerular Filt Rate 81 ml/min
== END 2023-10-10 09:53 | disposition home or self-care (01) ==
LOC: NPINS 09:52
PROVIDERS: PCP Internal Medicine; Visit Provider Internal Medicine Gastroenterology
DX: K52.3 Indeterminate colitis (principal)
CPT/HCPCS: 82565; 84520

== ENCOUNTER 2023-10-31 08:09 | Outpatient (CLI) | payer MEDICARE, BC, SELFPAY ==
--- OUTSIDE RECORDS SUMMARY | 2023-11-01 07:08 | XMS_ITS | Clinical Summary ---
Author Name Unknown Organization [employer] [facility] [employer] [employer] Address [place], [place] [address] Care Team Providers Care Hack Driver Name Role Phone Mckinley Reich MD Primary Care Provider [phone] Allergies Active Allergy Reactions Criticality Noted Date Comments Tolterodine Rash 12/03/2007 Patch; skinrash 11/16 allergy is from the adhesive on the patch , not the medication. Medications Medication Sig Dispensed Refills Start Date End Date Status FISH OIL 500 MG CAP 6 per day 0 12/03/2007 Activ e buPROPion (WELLBUTRIN XL) 150 mg Extended-Release tablet 12/28/2019 Active simvastatin (ZOCOR) 40 mg tablet Take 1 tablet by mouth once daily. 02/11/2020 Active omeprazole (PRILOSEC) 20 mg Delayed-Release capsule Take 1 capsule by mouth 2 times daily before meals. 0 03/03/2020 Active ketoconazole 2% topical (NIZORAL) cream MASSAGE INTO FEET TWICE DAILY UNTIL RESOLVED THEN REPEAT NEEDED 12/23/2020 Active Active Problems Problem Noted Date Diagnosed Date Tendonitis of left gluteus minimus 07/04/2016 Obesity, unspecified 12/03/2007 Dysthymic disorder 12/03/2007 Routine general medical exam ination at a health care facility 12/03/2007 Overview: Mammo 12/06/05 Pap 12/05/05 colonoscopy Other atopic dermatitis and related conditions 0 02/28/2007 Overview: Eye lids Unspecified nasal polyp 02/28/2007 Encounters Date Type Department Care Team Description 09/25/2023 Lab Requisition [facility] [phone] Liz Ortega MD from Last 3 Months Immunizations Name Administration Dates Next Due Td [...] 97.5 kg (215 lb) 06/10/2020 10:02 AM HEART DOCTOR Height 164.6 cm (5' 4.8) 03/11/2016 9:37 [...] 1 - PCV) 2021 COVID-19 vaccine series (2022-24 season) 2023 08/03/2021, 10/30/2020, 10/02/2020 Influenza for age 65+ 03/17/2024 Tdap Completed 12/03/2007 Procedures Procedure Name Priority Date/Time Associated Diagnosis Comments PATH FNA CYTOLOGY ASP CYTOLOGY Routine 09/25/2023 12:00 PM CDT LAB TRACKING EVENT Routine 09/25/2023 8: 37 AM CDT SCAN-MAMMOGRAPHY REPORT 04/01/2008 12:00 AM CDT LIPID PANEL Timed 12/19/2005 8:13 AM CDT from Last 3 Months or Most Recently Relevant to Health Maintenance Results * PATH FNA CYTOLOGY ASP CYTOLOGY (09/25/2023 12:00 PM CDT) Case Report Medical Cytology Report ? Case: [id number] ? Authorizing Provider: ??Liz Ortega MD ??Collected: ? 09/25/2023 1200 ? Ordering Location: ? [facility] ?Received: ?09/25/2023 1655 ? Pathologist: ? Mary Randall ? MD Kylee ? Specimens: ?? A) - Left Inferior Thyroid ? B) - Left Inferior Thyroid ? 09/26/2023 1:26 PM CDT [facility] Final Diagnosis A) THYROID, LEFT INFERIOR, ULTRASOUND GUIDED FINE NEEDLE ASPIRATION: 1. Favor benign thyroid nodule 2. Negative for malignancy 3. See comment B) THYROID, LEFT MID, ULTRASOUND GUIDED FINE NEEDLE ASPIRATION: 1. Benign thyroid nodule 2. Negative for malignancy 3. See comment 09/26/2023 1:26 PM CDT [facility] Comment A-B) The risk of malignancy in the follow-up of lesions with this cytologic appearance is low (0-3%). Clinical and radiologic correlation is advised, with repeat sampling recommended for any suspicious or enlarging lesion at this site. 09/26/2023 1:26 PM CDT [facility] Clinical Information Alize Martinez is a 68 y.o. with a multinodular thyroid. Prior FNA of right lobe nodule with scant cellularity, FLUS ([id number]). Two additional nodules are sampled: A) Left inferior 1.5 cm TR4 nodule B) Left mid 8 mm TR5 nodule 09/26/2023 1:26 PM CDT [facility] Gross Description A) Received identified as Left Inferior Thyroid is a fine needle aspirate specimen. The following were received: ? -5 Air dried slides ? -1 CytoLyt vial ? -1 FNA Protect vial The following were prepared from the specimen submitted: ? -5 Diff-Quik stained slides ? -1 Papanicolaou stained ThinPrep slide B) Received identified as Left Mid Thyroid is a fine needle aspirate specimen. The following were received: ? -5 Air dried slides ? -1 CytoLyt vial ? -1 FNA Protect vial The following were prepared from the specimen submitted: ? -5 Diff-Quik stained slides ? -1 Papanicolaou stained ThinPrep slide 09/26/2023 1:26 PM CDT [facility] Microscopic Description Specimen adequacy: Adequate for interpretation. All slides were reviewed. The microscopic appearance substantiates the diagnosis. A-B) Scant hard colloid, with both macro- and microfollicular cell groups wtihout significant nuclear atypia. 09/26/2023 1:26 PM CDT [facility] Additional Information Cytology is screened at [facility], Central Laboratory - [address], [place] [address] and [facility] - [address] [place] [address] and [facility] - [address] [place] [address] Interpreted at [facility], Central Laboratory - [address], [place] [address] 09/26/2023 1:26 PM T [facility] Aspirate (Left Inferior Thyroid) 09/25/2023 12:00 PM CDT 09/25/2023 4:55 PM CDT Specimen obtained by aspiration (specimen) (Left Inferior Thyroid) 09/25/2023 12:00 PM CDT 09/25/2023 4:55 PM CDT Liz Ortega MD PATHOLOGY/CYTOLO GY Performing Organization Address [facility] de Phone Number [facility] [address] [place] [phone], * LAB TRACKING EVENT (09/25/2023 8:37 AM CDT) Other (Other) Client Collect / Unknown 09/25/2023 8:37 AM CDT 09/25/2023 4:19 PM CDT Liz Ortega MD LAB BILL ONLY Performing Organization Address [facility] de Phone Number [facility] [address] [place] [address], * SCAN-MAMMOGRAPHY REPORT (04/01/2008 12:00 AM CDT) Anatomical Region Laterality Modality Other Narrative Procedure Note Scanner - 04/01/2008 12:00 AM CDT Scanner OTHER * (ABNORMAL) LIPID PANEL (12/19/2005 8:13 AM CDT) CHOLESTEROL,TOTAL 227(H) 110 - 199 mg/dL [facility] TRIGLYCERIDES 102 <150 mg/dL [facility] HDL CHOLESTEROL 53 >40 mg/dL [facility] CHOL/HDL RATIO 4.28 <4.51 [facility] LDL CHOLESTEROL 154(H) <131 mg/dL [facility] PATIENT STATUS Fasting [facility] 12/19/2005 8:13 AM CDT 12/19/2005 8:13 AM CDT Irving Lindsey MD CHEMISTRY Performing Organization Address City/[facility]/ZIP Co de Phone Number [facility] [address] [place] [address] from Last 3 Months or Most Recently Relevant to Health Maintenance Care Teams Hack Driver Relationship Specialty Start Date End Date Mckinley Reich MD [address] [place] [address] PCP - General Emergency Medicine 07/04/16
--- OUTSIDE RECORDS SUMMARY | 2023-11-01 07:08 | XMS_ITS | Continuity of Care Document ---
Author Name Unknown Organization [facility] Address [address] [address] [place] [address] Phone Care Team Providers Care Door To Door Selling Distributor Name Role Phone Lei BOOGIE, Filomena Unavailable Unavailable Allergies, Adverse Reactions, Alerts Substance Reaction Status Criticality adhesive tape Rash Active No Information latex ItchingItching Active No Informatio n WARNIN allergy(ies) could not be collected because the type is not supported. Please contact the source practice for further details. Medications Medication Instructions Dosage Effective Dates (start - stop) Status Comments folic acid 1 mg tablet take 1 tablet by oral route every day 1 MG - Active Due for labs sulfasalazine 500 mg tablet take 3 Tablet by oral route 2 times every day after meals 1500 MG - Active Fish Oil 1,000 mg (120 mg-180 mg) capsule take 2 capsules by oral route every day - Active simvastatin 40 mg tablet take 1 tablet by oral route every day in the evening 40 MG - Active alendronate 35 mg tablet take 1 tablet by oral route every week in the morning, at least 30 min before first food, beverage, or medication of day 35 MG - Active Vitamin D3 1,000 unit capsule take 1 Capsule by Oral route once 1 Capsule - Active omeprazole 20 mg capsule,delayed release take 1 capsule by oral route 2 times every day before a meal 20 MG - Active CALCIO KARON (unknown strength) take 1 by Oral route 2 times every day Not Available - Active bupropion HCl SR 150 mg tablet,12 hr sustained-release take 1 tablet by oral route 2 times every day 150 MG - Active Procedures Procedure Date Established Level 4 Offic/outpt E&m Estab Mod-hi 2 23 Colonoscopy Flex; W/bx 1/mx Ugi Endo; W/bx 1/mx Level Iv-surg Path Gross/micro 23 Immunocytochemistry, Each Antibody New Level 4 Offic/outpt E&m Estab Low-mod 9 Routine Serum Collection Bld Ct; Hg/pltlt Ct Auto/compl 19 Comp Metabolic Panel Ferritin Bilirubin; Direct Iron Iron Binding Capacity Cyanocobalamin Vitamin D; 25 Hydroxy Colonoscopy Flex; W/remov Les- 18 Colonoscopy Flex; W/bx 1/mx Level Iv-surg Path [...] Diagnoses Date Provider Providers Copied on Encounter [facility], [address] [address], [place], [id number], tel:[phone] [facility] No Information 4 Lei Butt. [address] [place] [address] [place], [id number] , [place]. tel: [phone] [facility], [address] [address], [place], [id number], [place] tel:[phone] [facility] No Information 4 Lei Butt. [address] [place] [address], [facility] [place], [id number] , [place]. tel: [phone] Established Level 4 [facility], [address] [address], [place], [id number], [place] tel:[phone] [facility] GI Symptoms or Concerns (chief complaint) Indeterminate colitisHeartburnPer cam history of colonic polypsCough, unspecified type Apr- 3 Lei Butt. [address] [place] [address] [place], [place], [id number] , [place]. [phone] Referring Provider: Referral Self, USE FOR SELF REFERRALS. [facility], [address] [address], [place], [id number], [place] tel:[phone] [facility] Indeterminate colitis 3 Lei Butt. [address] [facility], [place], [place], [address] , [place]. [phone] Offic/outpt E&m Estab Mod-hi 2 [facility], [address] [address], [place], [id number], [place] tel:[phone] [facility] GI Symptoms or Concerns (chief complaint) Indeterminate colitisHeartburnCon stipation, unspecified constipation typePersonal history of colonic polypsLeukopenia, unspecified type 3 Lei Butt. [address] [facility], [facility] [address], [place], [place], [id number] , [place]. [phone] Referring Provider: Referral Self, USE FOR SELF REFERRALS. [facility], [address] [address], [place], [id number], [place] tel:[phone] [facility] No Information 3 Neto Ayala. [address] [facility], [address], [place], [place], [address] , [place]. tel:[phone] [facility], [address] [address], [place], [id number], [place] tel:[phone] [facility] GI Symptoms or Concerns (chief complaint) Hiatal herniaIrregular Z line of esophagusGastritis determined by endoscopyBenign fundic gland polyps of stomachIndeterminat e colitisPersonal history of colonic polypsGastro-esopha geal reflux disease with esophagitis, without bleedingIndetermina te colitisDiaphragmati c hernia without obstruction or gangreneGastro-esop hageal reflux disease with esophagitis, without bleedingPersonal history of colonic polyps 3 Jamir BOOGIE [facility]. [address] [facility], [facility] [address], [place], [id number] , [place]. tel: [phone] Referring Provider: Referral Self, USE FOR SELF REFERRALS. New Level 4 [facility], [address] [address], [place], [id number], [place] tel:[phone] [facility] GI Symptoms or Concerns (chief complaint) Indeterminate colitisDiarrhea, unspecified typeConstipation, unspecified constipation typeHeartburnPerson al history of colonic polyps 3 Lei Butt. [address] [facility], [address], [place], [id number] , [place]. tel: [phone] Referring Provider: Referral Self, USE FOR SELF REFERRALS. [facility], [address] [address], [place], [id number], [place] tel:[phone] [facility] No Information 3 Lei Butt. [address] [facility], [address], [place], [id number] , [place]. tel: [phone] [facility], [address] [address], [place], [id number], [place] tel:[phone] [facility] No Information 3 Neto Ayala. [address] [facility], [address], [place], [id number] , [place]. tel: [phone] [facility], [address] [address], [place], [id number], [place] tel:[phone] [facility] Inflammatory bowel diseases (IBD) 9 Lei Butt. [address] [facility], [address], [place], [id number] , [place]. tel: [phone] Offic/outpt E&m Estab Low-mod [facility], [address] [address], [place], [address], [place] tel:[phone] [facility] GI Symptoms or Concerns (chief complaint) Inflammatory bowel diseases (IBD)Personal history of colonic polypsDietary counseling and surveillance 9 Lei Butt. [address] [facility], [facility] [address], [facility] [place], [address] , [place]. tel:[phone] Referring Provider: Mckinley Randall, [address] [place] [address], [address]. tel:[phone] [facility], [address] [address], [place], [id number], [place] tel:[phone] [facility] Colorectal polypsPersonal history of colonic polypsOther specified diseases of intestineConstipati on, unspecifiedBenign neoplasm of ascending colonBenign neoplasm of ascending colonPersonal history of colonic polyps 8 Lei Butt. [address] [facility], [facility] [address], [facility] [place], [id number] , [place]. tel: [phone] Referring Provider: Referral Self, USE FOR SELF REFERRALS. [facility], [address] [address], [place], [id number], [place] tel:[phone] [facility] Leukopenia, unspecified type 8 Lei Butt. [address] [facility], [facility] [address], [facility] [place], [id number] , [place]. tel: [phone] Offic/outpt E&m Estab Mod-hi 2 [facility], [address] [address], [place], [id number], [place] tel:[phone] [facility] GI Symptoms or Concerns (chief complaint) IBD (inflammatory bowel disease)Constipatio n, unspecified constipation typeDietary counseling and surveillance 8 Lei Butt. [address] [facility], [facility] [address], [facility] [place], [id number] , [place]. tel: [phone] Referring Provider: Referral Self, USE FOR SELF REFERRALS. [facility], [address] [address], [place], [place], [address], [place] tel:[phone] [facility] IBD (inflammatory bowel disease) 7 Lei Butt. [address] [facility], [facility] [address], [place], [place], [id number] , [place]. tel:[phone] Offic/outpt E&m Estab Low-mod [facility], [address] [address], [facility] [place], [id number], [place] tel:[phone] [facility] GI Symptoms or Concerns (chief complaint) IBD (inflammatory bowel disease)Dietary counseling and surveillance 7 Lei Butt. [address] [facility], [facility] [address], [facility] [place], [id number] , [place]. [phone] Referring Provider: Referral Self, USE FOR SELF REFERRALS. Offic/outpt E&m Estab Low-mod [facility], [address] [address], [facility] [place], [id number], [place] tel:[phone] [facility] GI Symptoms or Concerns (chief complaint) IBD (inflammatory bowel disease)Dietary counseling and surveillance 6 Lei Butt. [address] [facility], [facility] [address], [place], [place], [id number] , [place]. tel:[phone] Referring Provider: Mckinley Randall, [address] [place] [address], [address]. tel:[phone] Offic/outpt E&m Estab Low-mod [facility], [address] [address], [facility] [place], [id number], [place] tel:[phone] [facility] GI Symptoms or Concerns (chief complaint) IBD (inflammatory bowel disease)Dietary counseling and surveillance 6 Lei Butt. [address] [facility], [facility] [address], [facility] [place], [address] , [place]. tel:[phone] Referring Provider: Mckinley Randall, [address] [place] [address], [address]. tel:[phone] Offic/outpt E&m Estab Low-mod [facility], [address] [address], [facility] [place], [id number], [place] tel:[phone] [facility] GI Symptoms or Concerns (chief complaint) Ulcerative Colitis NosRectal bleedingAbdominal pain, right lower quadrantDietary Surveil/student success counselor 5 Carolina TAMIR Cindi. [address] [place] [address], [id number] , [place]. tel: [phone] Referring Provider: Mckinley Randall, [address] [place] [address], [address]. tel:[phone] [facility], [address] [address], [place], [address], [place] tel:[phone] [facility] Colon polypUlcerative Colitis NosBenign Neoplasm Colon 4 Lei Butt. [address] [place] [address], [id number] , [place]. tel: [phone] Referring Provider: Mckinley Randall, [address] [place] [address], [address]. tel:[phone] [facility], [address] [address], [place], [id number], [place] tel:[phone] [facility] IBD 4 Lei Butt. [address] [place] [address] [place], [id number] , [place]. tel: [phone] Offic Cons New/estab Mod [facility], [address] [address], [place], [id number], [place] tel:[phone] [facility] GI Symptoms or Concerns (chief complaint) IBDDiarrheaGenerali sed abdominal painRectal bleedingDietary Surveil/student success counselor 4 Lei Butt. [address] [place] [address] [place], [id number] , [place]. tel:[phone] Referring Provider: Mckinley Randall, [address] [place] [address], [address]. tel:[phone] [facility], [address] [address], [place], [address], [place] tel:[phone] [facility] No Information Lizeth Fernandes. [address] [facility], [address], [place], [place], [address] , [place]. tel:[phone] Referring Provider: Vaughn Lima, [address], [place], [address]. tel:[phone] Family History Family Member Type Diagnosis Age At Onset Daughter Problem (finding) Asthma Daughter Problem (finding) Crohn's disease Sister Problem (finding) gallbladder disease Mother Problem (finding) Asthma Daughter Problem (finding) Alive and well Mother Problem (finding) Diverticular disease Sister Problem (finding) Colon polyps Father Problem (finding) Colon polyps Mother Problem (finding) [...] bowel disease Immunizations Vaccine Date Status Comments Pneumococcal conjugate vacci ne 20-valent (PCV20), polysaccharide [id number] conjugate, adjuvant, preservative free administered Note: [employer] SEOIC bi-direct ional interface ; Source: Other Registry SARS-COV-2 (COVID-19) [...] 2 Lf of diphtheria toxoid) administered Note: MII C bi- directional interface ; Source: Other Registry Engerix-B administered [...] libertarian ID Authoriza tion(s) Medicare NGS MB [id number] [employer] [place] BL [id number] Social History Type Description Quantity Date Captured Comments Alcohol Use Details Unknown Caffeine Use Details Unknown Tobacco Use Status No Information Smoking Status No Information Sex Female Chief [...] Appointment date/timeframe: 09/27/2022 ordered Referral Ordered: Thyroid Summers Profile Appointment date/timeframe: 09/27/2022 ordered Referral Ordered: [...] And WITH Contrast Appointment date/timeframe: 01/12/2016 ordered History Of Present Illness Encounter Date Complaint History Of Prese nt Illness GI Symptoms or Concerns Patient is a 68-year-old female who had a virtual visit performed today for 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 She also has had history of heartburn and constipation. She denies any current constipation and has not needed to use any MiraLax. Her heartburn is well controlled on omeprazole 20 milligrams twice daily. She was started on sulfasalazine 3 pills twice daily as well as folic acid 1 milligram daily since her last GI visit to prevent recurrence of her indeterminate colitis. She denies any GI symptoms at this time. She does report a few months of a dry cough. Her most recent colonoscopy did not show any active inflammation. She was off any medications for indeterminate colitis between 2019 and her last visit in November 2022. She never saw her professional soccer player for the mild persistent leukopenia on her labs. GI Symptoms or Concerns Patient is a 67-year-old female had an in-person visit today for follow-up of indeterminate colitis and heartburn and constipation. Patient was last seen in GI clinic in August of this year. She was initially diagnosed with indeterminate colitis at the [facility] in 2010. She was on mesalamine medications, mainly Lialda 4.8 grams daily until 2019 when she stopped taking the Lialda due to some constipation. She has been off medications for indeterminate colitis since 2019. She had a recent colonoscopy on October 25 that showed no active inflammation in the colon or terminal ileum. Random colon biopsies were normal. She also had an upper endoscopy on October 25 for follow-up of heartburn. She had a 2 centimeter hiatal hernia and some gastropathy. Biopsies showed reflux esophagitis and reactive gastropathy and duodenal biopsies were negative. I reviewed her labs from September of this year including a CBC CMP folic acid, celiac labs and QuantiFERON and these were mainly significant for mild persistent leukopenia. I have referred her to her professional soccer player again for follow-up of the leukopenia. Patient reports that she continues to do well and denies current GI symptoms. 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 She had an MR enterography in September of this year and this was also unrevealing. Patient reports she has been taking MiraLax once daily and this has been controlling her constipation. Omeprazole 20 milligrams twice daily has overall been controlling her heartburn. GI Symptoms or Concerns GI Symptoms or Concerns The mina ent is a 67-year-old female who had a new virtual visit performed today for 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 The patient was last seen in GI Clinic in March 2019. She was diagnosed with indeterminate colitis at the [facility] in 2010. This seemed to involve [...] reports her last upper endoscopy was at [facility] in 2010 or 2009 or 2011. GI Symptoms or Concerns The mina ent is a 63-year-old female who is here for followup with indeterminate colitis diagnosed at the [facility] in 2010. The patient's intermittent colitis [...] and her will be retiring in the nd GI Symptoms or Concerns The symp toms [...] was diagnosed with indeterminate colitis at the [facility] in 2010. Her disease seemed to [...] was diagnosed with indeterminate colitis at the [facility] in 2010. Her last colonoscopy 2013 [...] that when she was seen at the [facility], they were unsure which one she [...] did make an appointment here in [place] [facility]. On top of her bloating and [...] reports she was eventually seen at the [facility] who confirmed inflammatory bowel disease, but [...] No Information Instructions Date Instruction Additional Infor nate -Patient will follow -up with her PCP soon regarding persistent dry cough Related to Cough, unspecified type -Continue omeprazole 20 mg twice daily Related to Heartburn -Labs as ordered - i f white blood cell count still low then patient will schedule an appointment with her professional soccer player soon for follow-up -Continue sulfasalazine 3 tabs twice daily and folic acid 1 mg daily-Repeat colonoscopy with double prep with TI eval and random colon biopsies for dysplasia surveillance in 10/2024-Avoid NSAIDs-Calcium and vitamin D-Patient has declined any vaccines (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)-Patient prefers follow-up in 1 year Related to Indeterminate colitis -Patient will schedu le an appointment with her professional soccer player soon for follow-up of her mild persistent leukopenia Related to Leukopenia, unspecified type -We discussed possib le treatment options and patient decided to restart generic lialda 4.8 grams daily to help prevent future flares of indeterminate colitis-Repeat colonoscopy with double prep with TI eval and random colon biopsies for dysplasia surveillance in 10/2024-Avoid NSAIDs-Calcium and vitamin D-Patient has declined any vaccines (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)-Follow-up in 6 months Related to Indeterminate colitis -Continue omeprazole 20 mg twice daily Related to Heartburn -Miralax daily for constipation Related to Constipation, unspecified constipation type H pylori Related to Hiata l hernia Colon Cancer Prevention Related to Hiatal hernia Gastritis Related to Hiata l hernia -Continue omeprazole 20 mg twice daily-Will request results of last EGD reportedly performed at [facility] in 2009 or 2010-EGD to check for Fernandez's esophagus, with duodenal biopsies Related to Heartburn -Labs as ordered-Vanessa ient did not want to restart mesalamine at this time and would like to wait for colonoscopy results-Colonoscopy with double prep with TI eval and random colon biopsies for dysplasia surveillance-MR enterography to assess for small bowel disease-Avoid NSAIDs-Calcium and vitamin D-Patient has declined any vaccines (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)-Miralax as needed for ridcweyhyvym-Nnapng-xg in 2 months, after all testing completed Related to Indeterminate colitis -Repeat colonoscopy with double prep with TI eval and random colon biopsies in 06/2023 Related to Personal history of colonic polyps -Labs as ordered-Con tinue lialda 4.8 grams daily-Avoid NSAIDs-Calcium and vitamin D-Patient declined any vaccines (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)-Miralax as needed for wqmcpvbneklc-Vgvsso-wb in 1 year Related to Inflammatory bowel [...] reassess microscopic disease extent-Miralax as needed for wekxqclhmmfm-Buwkyp-zc in 2 months, after colonoscopy Related to [...] in 2013 and to reassess microscopic disease rpjcto-Dpfchi-xn in 1 year Related to IBD (inflammatory [...] consider flex sig with biopsies for further idzxmrljnj-Bkjacn-xt in 2 months Related to IBD (inflammatory bowel disease) Lifestyle education regarding di et Related to Dietary counseling and surveillance MRI Enterography WIT HOUT And WITH Contrast Lifestyle education regarding di et Related to Dietary surveillance and counseling Colon Cancer Prevention Related to Colon polyp Colon Polyps Related to Colon polyp -Labs as ordered-[facility] infectious studies-CT enteroraphy-Colonoscopy with TI and colon biopsies-Lialda 4.8 grams daily-Discontinue naltrexone-Avoid NSAIDs-Calcium and vitamin D-Patient declined influenza and pneumovax vaccines-Bone density scan in near ewcika-Hyriku-fg in 1 month Related to Rectal bleeding [...]
== END 2023-10-31 08:10 | disposition home or self-care (01) ==
LOC: NFLDREF 11-01 07:05
PROVIDERS: PCP Internal Medicine; Referring Provider Internal Medicine; Visit Provider Internal Medicine
DX: E78.5 Hyperlipidemia, unspecified (principal); M85.80 Other specified disorders of bone density and structure, unspecified site
CPT/HCPCS: 80061; 82306

== ENCOUNTER 2023-12-12 07:06 | Outpatient (CLI) | payer MEDICARE, BC, SELFPAY ==
--- OUTSIDE RECORDS SUMMARY | 2023-12-12 07:09 | XMS_ITS | Clinical Summary ---
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 Case: [id number] ? Authorizing Provider: ??Liz Ortega MD ??Collected: ? 09/25/2023 1200 ? Ordering Location: ? [facility] ?Received: ?09/25/2023 1655 ? Pathologist: ? Mary Randall ? MD Kylee ? Specimens: ?? A) - Left Inferior Thyroid ? B) - Left Inferior Thyroid ? 09/26/2023 1:26 PM CDT [email or web address] Final Diagnosis A) THYROID, LEFT INFERIOR, ULTRASOUND GUIDED FINE NEEDLE ASPIRATION: 1. Favor benign thyroid nodule 2. Negative for malignancy 3. See comment B) THYROID, LEFT MID, ULTRASOUND GUIDED FINE NEEDLE ASPIRATION: 1. Benign thyroid nodule 2. Negative for malignancy 3. See comment 09/26/2023 1:26 PM CDT [email or web address] Comment A-B) The risk of malignancy in the follow-up of lesions with this cytologic appearance is low (0-3%). Clinical and radiologic correlation is advised, with repeat sampling recommended for any suspicious or enlarging lesion at this site. 09/26/2023 1:26 PM CDT [facility] Clinical Information Alize Martinez is a 68 y.o. with a multinodular thyroid. Prior FNA of right lobe nodule with scant cellularity, FLUS ([id number]). Two additional nodules are sampled: A) Left inferior 1.5 cm TR4 nodule B) Left mid 8 mm TR5 nodule 09/26/2023 1:26 PM CDT [facility] Gross Description A) Received identified as [...] stained ThinPrep slide 09/26/2023 1:26 PM CDT [facility] Microscopic Description Specimen adequacy: Adequate for interpretation. All slides were reviewed. The microscopic appearance substantiates the diagnosis. A-B) Scant hard colloid, with both macro- and microfollicular cell groups wtihout significant nuclear atypia. 09/26/2023 1:26 PM CDT [facility] Additional Information Cytology is screened at [facility], Central Laboratory - [address], [place] [address] and [facility] - [address] [place] [address] and [facility] - [address] [place] [address] Interpreted at [facility], Central Laboratory - [address], [place] [address] 09/26/2023 1:26 PM CDT [facility] Aspirate (Left Inferior Thyroid) 09/25/2023 12:00 PM CDT 09/25/2023 4:55 PM CDT Specimen obtained by aspiration (specimen) (Left Inferior Thyroid) 09/25/2023 12:00 PM CDT 09/25/2023 4:55 PM CDT Liz Ortega MD PATHOLOGY/CYTOLO GY Performing Organization Address [facility] de Phone Number [facility] [address] [place] [id number], [place] * LAB TRACKING EVENT (09/25/2023 8:37 AM CDT) Other (Other) Client Collect / Unknown 09/25/2023 8:37 AM CDT 09/25/2023 4:19 PM CDT Liz Ortega MD LAB BILL ONLY Performing Organization Address [facility] de Phone Number [facility] [address] [place] [id number], * SCAN-MAMMOGRAPHY REPORT (04/01/2008 12:00 AM CDT) Anatomical Region Laterality Modality Other Narrative Procedure Note Scanner - 04/01/2008 12:00 AM CDT Scanner OTHER * (ABNORMAL) LIPID PANEL (12/19/2005 8:13 AM CDT) CHOLESTEROL,TOTAL 227(H) 110 - 199 mg/dL [facility] TRIGLYCERIDES 102 <150 mg/dL [facility] HDL CHOLESTEROL 53 >40 mg/dL [facility] CHOL/HDL RATIO 4.28 <4.51 [facility] LDL CHOLESTEROL 154(H) <131 mg/dL [facility] PATIENT STATUS Fasting [facility] 12/19/2005 8:13 AM CDT 12/19/2005 8:13 AM CDT Irving Lindsey MD CHEMISTRY Performing Organization Address City/[facility]/ZIP Co de Phone Number [facility] [address] [place], [place] [id number] from Last 3 Months or Most Recently Relevant to Health Maintenance Care Teams Manufacturing Cost Estimator Relationship Specialty Start Date End Date Mckinley Reich MD [address] [place] [address] PCP - General Emergency Medicine 07/04/16
--- NOTE | 2023-12-12 07:15 | CRLHL7_ITS ---
For Patients: As a result of the Century Cures Act, medical imaging exams and procedure reports are released immediately into your electronic medical record. You may view this report before your referring provider. If you have questions, please contact your health care provider. INDICATION: Thyroid nodule COMPARISON: 09/25/2023, 07/25/2023, 07/04/2023 TECHNIQUE: Medina scale and color Doppler images were acquired of the thyroid gland. FINDINGS: The thyroid gland demonstrates heterogeneous echogenicity and has a lobular outer contour. The right lobe measures 5.3 x 1.5 x 2.3 cm and the left lobe measures 3.9 x 1.1 x 1.3 cm in size. Isthmus measures 3.7 millimeters. Heterogeneous solid nodule right thyroid lobe measures 2.6 x 1.6 x 2.3 cm, TR 4, previously measuring 2.2 x 1.6 x 1.9 cm. Solid nodule left thyroid lobe measures 1.2 x 0.7 x 1.0 cm, TR 4. Additional left thyroid nodule has hyperechoic echotexture and measures 1.3 x 0.8 x 1.0 cm, TR 3. Solid and cystic nodule left thyroid lobe measures 10 x 6 x 8 millimeters, TR 3. The color Doppler images demonstrate increased vascularity. There is no evidence of cervical lymphadenopathy or parathyroid mass. IMPRESSION: 2.6 cm TR 4 nodule right thyroid lobe, previously measuring 2.2 cm. Similar TR 4 and TR 3 nodules left thyroid lobe. Dictated by Conner Valdez MD @ 12/12/2023 9:46:27 AM (Electronically Signed)
== END 2023-12-12 07:07 | disposition home or self-care (01) ==
LOC: US 07:07
PROVIDERS: PCP Internal Medicine; Visit Provider Surgery
DX: E04.1 Nontoxic single thyroid nodule (principal)
CPT/HCPCS: 76536

== ENCOUNTER 2024-05-29 12:05 | Outpatient (REF) | payer MEDICARE, BC, SELFPAY ==
[2024-05-29 14:09] LABS: Basophils Percent Auto 0.3 % (0.0-3.0); Eosinophils Percent Auto 2.9 % (0.0-7.0); Hematocrit 41.6 % (33.0-51.0); Hemoglobin* 13.4 gm/dL (12.0-16.0); Lymphocytes Percent Auto 29.6 % (20-44); Mean Corpuscular HGB Conc 32 gm/dL (32-36); Mean Corpuscular Hemoglobin 31 pg (26-34); Mean Corpuscular Volume 95 fL (80-100); Monocytes Percent Auto 8.7 % (0.0-11.0); Neutrophils Percent Auto 58.5 % (42.0-72.0); Platelet Count* 252 K/uL (140-440); RDW Coefficient of Variation % 12.7 % (11.5-15.5); Red Blood Count 4.36 m/uL (4.00-5.20); White Blood Count* 3.11 K/uL (4.50-11.00)
[2024-05-29 14:24] LABS: Albumin* 4.3 g/dL (3.3-5.0)
[2024-05-29 14:26] LABS: Slide Review Reflex No
[2024-05-29 14:27] LABS: Bilirubin Direct* 0.3 mg/dL (0.0-0.5); Bilirubin Total* 0.3 mg/dL (0.1-1.5); Creatinine* 0.8 mg/dL (0.5-1.5); Estimated Glomerular Filt Rate 80 ml/min; Total Protein* 7.2 g/dL (6.0-8.3)
[2024-05-29 14:28] LABS: Alanine Aminotransferase* 25 U/L (4-35); Alkaline Phosphatase* 100 U/L (40-150); Aspartate Amino Transferase* 38 U/L (12-35); Blood Urea Nitrogen* 17 mg/dL (7-30)
[2024-05-29 14:45] LABS: Vitamin D 25 Hydroxy* 43 ng/mL (30-80)
[2024-05-29 15:17] LABS: Vitamin B12* 328 pg/mL (243-894)
== END 2024-05-29 12:06 | disposition home or self-care (01) ==
LOC: NPINS 12:05
PROVIDERS: PCP Internal Medicine; Visit Provider Internal Medicine Gastroenterology
DX: K52.3 Indeterminate colitis (principal); R12 Heartburn; Z86.0100 Personal history of colon polyps, unspecified
CPT/HCPCS: 80076; 82306; 82565; 82607; 84520; 85025

== ENCOUNTER 2024-06-10 07:00 | Outpatient (CLI) | payer MEDICARE, BC, SELFPAY ==
--- OUTSIDE RECORDS SUMMARY | 2024-06-10 07:03 | XMS_ITS | Clinical Summary ---
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 Phone Mckinley Reich MD Primary Care Provider [phone] Allergies Active Allergy Reactions Criticality Noted Date [...] ination at a health care facility 12/03/2007 Overview (12/03/2007): Mammo 12/06/05 Pap 12/05/05 colonoscopy Other atopic dermatitis and related conditions 0 02/28/2007 Overview (02/28/2007): Eye lids Unspecified nasal polyp 02/28/2007 Immunizations [...] Outcome GA Total Labor Labor/2nd/3rd Weight Sex Type Anes PTL Jennyfer A1 A5 Name Clin Para Para Para Para Para Last Filed Vital Signs Vital Sign Reading Time Taken Comments Blood Pressure 135/84 12/08/2021 10:07 AM CDT Pulse 71 01/26/2022 3:38 PM CDT Temperature 36.7 C (98 F) 01/26/2022 3:38 PM CDT Respiratory Rate - - Oxygen Saturation 96% 01/26/2022 3:38 PM CDT Inhaled Oxygen Concentration - - Weight 97.5 kg (215 lb) 06/10/2020 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 Height 164.6 cm (5' 4.8) 03/11/2016 9:37 [...] 1 - PCV) 2021 COVID-19 vaccine series ( - 2023- season) 2024 08/03/2021, 10/30/2020, 10/02/2020 Influenza for age 65+ 03/17/2024 Tdap Completed 12/03/2007 Procedures Procedure Name Priority Date/Time Associated Diagnosis Comments SCAN-MAMMOGRAPHY REPORT 04/01/2008 12:00 AM CDT LIPID PANEL Timed 12/19/2005 8:13 AM CDT from Last 3 Months or Most Recently Relevant to Health Maintenance Results * SCAN-MAMMOGRAPHY REPORT (04/01/2008 12:00 AM CDT) Anatomical Region Laterality Modality Other Narrative Procedure Note Scanner - 04/01/2008 12:00 AM CDT Scanner OTHER * (ABNORMAL) LIPID PANEL (12/19/2005 8:13 AM CDT) CHOLESTEROL,TOTAL 227(H) 110 - 199 mg/dL [facility] TRIGLYCERIDES 102 <150 mg/dL [facility] HDL CHOLESTEROL 53 >40 mg/dL [facility] CHOL/HDL RATIO 4.[address] [facility] LDL CHOLESTEROL 154(H) <131 mg/dL [facility] PATIENT STATUS Fasting 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
--- NOTE | 2024-06-10 07:15 | CRLHL7_ITS ---
For Patients: As a result of the Cures Act, medical imaging exams and procedure reports are released immediately into your electronic medical record. You may view this report before your referring provider. If you have questions, please contact your health care provider. INDICATION: F/U Thyroid Nodules COMPARISON: 07/04/2023 TECHNIQUE: Medina scale and color Doppler images were acquired of the thyroid gland. FINDINGS: Thyroid echotexture is diffusely heterogeneous. There is a heterogeneous solid nodule within the right thyroid lobe measuring 2.6 x 1.7 x 2.1 cm, TR 4. In retrospect, this corresponds to 2 juxtaposed nodules and is considered 1 nodule on the current study. Small hypoechoic mostly solid nodule left thyroid lobe measures 7 x 4 x 11 millimeters, TR 4. Additional near isoechoic solid nodule left thyroid lobe measures 11 x 10 x 8 millimeters, TR 3. Solid hypoechoic nodule with coarse calcifications left thyroid lobe measures 7 x 7 x 6 millimeters, TR 4. Isthmus measures 4 millimeters. The right lobe measures 5.3 x 2.0 x 2.2 cm and the left lobe measures 3.8 x 1.0 x 1.3 cm in size. The color Doppler images demonstrate increased vascularity. There is no evidence of cervical lymphadenopathy or parathyroid mass. IMPRESSION: Similar bilateral thyroid nodules. Dictated by Conner Valdez MD @ 06/10/2024 8:56:21 AM (Electronically Signed)
== END 2024-06-10 07:01 | disposition home or self-care (01) ==
LOC: US 07:01
PROVIDERS: PCP Internal Medicine; Visit Provider Surgery
DX: E04.1 Nontoxic single thyroid nodule (principal); E07.89 Other specified disorders of thyroid
CPT/HCPCS: 76536

== ENCOUNTER 2024-07-08 07:56 | Outpatient (CLI) | payer MEDICARE, BC, SELFPAY ==
--- NOTE | 2024-07-08 08:15 | CRLHL7_ITS ---
For Patients: As a result of the Century Cures Act, medical imaging exams and procedure reports are released immediately into your electronic medical record. You may view this report before your referring provider. If you have questions, please contact your health care provider. BILATERAL SCREENING MAMMOGRAM WITH COMPUTER-AIDED DETECTION AND TOMOSYNTHESIS TECHNIQUE: CC and MLO views were obtained. These mammographic images have been obtained using full-field digital technique. These mammographic images were interpreted with the benefit of computer-aided detection. Breast Tomosynthesis was used in this interpretation. COMPARISON FILM: 06/26/23, 04/13/22, 03/18/21. FINDINGS: There are scattered areas of fibroglandular density. IMPRESSION: There is no radiographic evidence for malignancy. ASSESSMENT: BI-RADS Category 1: Negative RECOMMENDATION: Routine screening mammogram in 1 year. A lay language report of this examination will be provided to the patient. Conner Valdez M.D. Diagnostic Radiologist [email or web address] SP/Dictated by: Conner Valdez MD @ 07/08/2024 10:08:00 AM (Electronically Signed)
== END 2024-07-08 07:57 | disposition home or self-care (01) ==
LOC: MAMMO 07:57
PROVIDERS: PCP Internal Medicine; Visit Provider Internal Medicine
DX: Z12.31 Encounter for screening mammogram for malignant neoplasm of breast (principal)
CPT/HCPCS: 77063; 77067

== ENCOUNTER 2024-08-17 10:25 | Emergency (ER) | payer MEDICARE, BC, SELFPAY ==
--- OUTSIDE RECORDS SUMMARY | 2024-08-17 10:27 | XMS_ITS | Clinical Summary ---
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 Height 164.6 cm (5' 4.8) 03/11/2016 9:37 AM CDT Body Mass Index 36 03/11/2016 9:37 AM CDT Plan of Treatment Health Maintenance Due Date Last Done Comments Depression screening for age 12+ 1968 Hepatitis C screening for age 18-79 1974 Pneumococcal series for age 50+ (1 of 1 - PCV) 2006 Zoster (shingles) series for age 50+ (1 of 2) 2006 Mammogram for age 45-75 04/01/2009 04/01/20, 12/03/2007, 02/22/2007 Lipids for age 45-75 12/19/2010 12/19/2005 BMI (ht and wt on same day) for age 18+ 03/11/2017 03/11/2016 Tetanus booster 12/02/2017 12/03/2007, 07/18/1995 Colonoscopy through age 75 01/29/2018 01/30/2008 DEXA/DXA scan for age 65+ 2021 Medicare Wellness for age 65+ 2021 COVID-19 vaccine series ( season) 2024 08/03/2021, 10/30/2020, 10/02/2020 Influenza for age 65+ 03/17/2024 RSV vaccine for adults or pr egnancy (1 - 1-dose 75+ series) 2031 Tdap Completed 12/03/2007 Procedures Procedure Name Priority Date/Time Associated Diagnosis Comments SCAN-MAMMOGRAPHY REPORT 04/01/2008 12:00 AM CDT LIPID PANEL Timed 12/19/2005 8:13 AM CDT from Last 3 Months or Most Recently Relevant to Health Maintenance Results * SCAN-MAMMOGRAPHY REPORT (04/01/2008 12:00 AM CDT) Anatomical Region Laterality Modality Other Narrative Procedure Note Scanner - 04/01/2008 12:00 AM CDT us Scanner OTHER Final Result * (ABNORMAL) LIPID PANEL (12/19/2005 8:13 AM CDT) CHOLESTEROL,TOTAL 227(H) 110 - 199 mg/dL [facility] TRIGLYCERIDES 102 <150 mg/dL [facility] HDL CHOLESTEROL 53 >40 mg/dL [facility] CHOL/HDL RATIO 4.28 <4.51 [facility] LDL CHOLESTEROL 154(H) <131 mg/dL [facility] PATIENT STATUS Fasting [facility] 12/19/2005 8:13 AM CDT 12/19/2005 8:13 AM CDT us Irving Lindsey MD CHEMISTRY Final Result [facility] [address] [place] [address] from Last 3 Months or Most Recently Relevant to Health Maintenance Insurance [employer] BLUE MR PB ONLY Care Teams Wild Oyster Harvester Relationship Specialty Start Date End Date Mckinley Reich MD [address] [place] [address] PCP - General Emergency Medicine 07/04/16
--- OUTSIDE RECORDS SUMMARY | 2024-08-17 10:27 | XMS_ITS | Continuity of Care Document ---
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 [address] [place] [address], [facility] [address], [place], [place], [address] , [place]. tel:[phone] [facility], [address] [address], [place], [address], [place] tel:[phone] [facility] Leukopenia, unspecified type 4 Lei Butt. [address] [facility], [facility] [address], [place], [place], [address] , [place]. tel: [phone] Established Level 4 [facility], [address] [address], [place], [address], [place] tel:[phone] [facility] GI Symptoms or Concerns (chief complaint) Indeterminate colitisHeartburnPer cam history of colonic polyps 4 Lei Butt. [address] [facility], [facility] [address], [place], [place], [address] , [place]. tel: [phone] Referring Provider: Referral Self, USE FOR SELF REFERRALS. [facility], [address] [address], [place], [id number], [place] tel:[phone] [facility] No Information 4 Lei Butt. [address] [facility], [facility] [address], [facility] [place], [id number] , [place]. tel: [phone] Established Level 4 [facility], [address] [address], [place], [id number], [place] tel:[phone] [facility] GI Symptoms or Concerns (chief complaint) Indeterminate colitisHeartburnPer cam history of colonic polypsCough, unspecified type 3 Lei Butt. [address] [place] [address], [facility] [address], [facility] [place], [address] , [place]. tel: [phone] Referring Provider: Referral Self, USE FOR SELF REFERRALS. [facility], [address] [address], [place], [id number], [place] tel:[phone] [facility] Indeterminate colitis 3 Lei Butt. [address] [place] [address], [facility] [address], [place], [address] , [place]. tel: [phone] Offic/outpt E&m Estab Mod-hi 2 [facility], [address] [address], [place], [address], [place] tel:[phone] [facility] GI Symptoms or Concerns (chief complaint) Indeterminate colitisHeartburnCon stipation, unspecified constipation typePersonal history of colonic polypsLeukopenia, unspecified type 3 Lei Butt. [address] [place] [address], [facility] [address], [facility] [place], [address] , [place]. tel: [phone] Referring Provider: Referral Self, USE FOR SELF REFERRALS. [facility], [address] [address], [place], [id number], [place] tel:[phone] [facility] No Information 3 Neto Ayala. [address] [facility] [address], [address], [place], [place], [address] , [place]. tel:[phone] [facility], [address] [address], [place], [place], [address], [place] tel:[phone] [facility] GI Symptoms or Concerns (chief complaint) Hiatal herniaIrregular Z line of esophagusGastritis determined by endoscopyBenign fundic gland polyps of stomachIndeterminat e colitisPersonal history of colonic polypsGastro-esopha geal reflux disease with esophagitis, without bleedingIndetermina te colitisDiaphragmati c hernia without obstruction or gangreneGastro-esop hageal reflux disease with esophagitis, without bleedingPersonal history of colonic polyps 3 Jamir Aguilarahim. [address] [facility], [address], [place], [address] , [place]. tel:[phone] Referring Provider: Referral Self, USE FOR SELF REFERRALS. New Level 4 [facility], [address] [address], [place], [address], [place] tel:[phone] [facility] GI Symptoms or Concerns (chief complaint) Indeterminate colitisDiarrhea, unspecified typeConstipation, unspecified constipation typeHeartburnPerson al history of colonic polyps 3 Lei Butt. [address] [facility], [address], [place], [address] , [place]. tel:[phone] Referring Provider: Referral Self, USE FOR SELF REFERRALS. [facility], [address] [address], [place], [address], [place] tel:[phone] [facility] No Information 3 Lei Butt. [address] [facility] [address], [address], [place], [address] , [place]. tel:[phone] [facility], [address] [address], [place], [address], [place] tel:[phone] [facility] No Information 3 Neto Ayala. [address] [facility], [address], [facility] [place], [address] , [place]. [phone] [facility], [address] [address], [place], [address], [place] tel:[phone] [facility] Inflammatory bowel diseases (IBD) 9 Lei Butt. [address] [facility], [address], [place], [address] , [place]. tel:[phone] Offic/outpt E&m Estab Low-mod [facility], [address] [address], [place], [address], [place] tel:[phone] [facility] GI Symptoms or Concerns (chief complaint) Inflammatory bowel diseases (IBD)Personal history of colonic polypsDietary counseling and surveillance 9 Lei Butt. [address] [facility], [address], [facility] [place], [address] , [place]. tel:[phone] Referring Provider: Mckinley Randall, [address] [place] [address], [address]. tel:[phone] [facility], [address] [address], [place], [address], [place] tel:[phone] [facility] Colorectal polypsPersonal history of colonic polypsOther specified diseases of intestineConstipati on, unspecifiedBenign neoplasm of ascending colonBenign neoplasm of ascending colonPersonal history of colonic polyps 8 Lei Butt. [address] [facility], [address], [facility] [place], [address] , [place]. [phone] Referring Provider: Referral Self, USE FOR SELF REFERRALS. [facility], [address] [address], [place], [address], [place] tel:[phone] [facility] Leukopenia, unspecified type 8 Lei Butt. [address] [facility], [address], [place], [address] , [place]. [phone] Offic/outpt E&m Estab Mod-hi 2 [facility], [address] [address], [place], [id number], [place] tel:[phone] [facility] GI Symptoms or Concerns (chief complaint) IBD (inflammatory bowel disease)Constipatio n, unspecified constipation typeDietary counseling and surveillance 8 Lei Butt. [address] [facility], [facility] [address], [place], [place], [address] , [place]. [phone] Referring Provider: Referral Self, USE FOR SELF REFERRALS. [facility], [address] [address], [place], [address], [place] tel:[phone] [facility] IBD (inflammatory bowel disease) 7 Lei Butt. [address] [facility], [facility] [address], [place], [id number] , [place]. [phone] Offic/outpt E&m Estab Low-mod [facility], [address] [address], [place], [address], [place] tel:[phone] [facility] GI Symptoms or Concerns (chief complaint) IBD (inflammatory bowel disease)Dietary counseling and surveillance 7 Lei Butt. [address] [place] [address], [facility] [address], [place], [place], [address] , [place]. [phone] Referring Provider: Referral Self, USE FOR SELF REFERRALS. Offic/outpt E&m Estab Low-mod [facility], [address] [address], [place], [place], [address], [place] tel:[phone] [facility] GI Symptoms or Concerns (chief complaint) IBD (inflammatory bowel disease)Dietary counseling and surveillance 6 Lei Butt. [address] [facility], [facility] [address], [place], [place], [address] , [place]. [phone] Referring Provider: Mckinley Randall, [address] [place] [address] [place], [address]. tel:[phone] Offic/outpt E&m Estab Low-mod [facility], [address] [address], [place], [address], [place] tel:[phone] [facility] GI Symptoms or Concerns (chief complaint) IBD (inflammatory bowel disease)Dietary counseling and surveillance 6 Lei Butt. [address] [place] [address] [address], [facility] [place], [address] , [place]. [phone] Referring Provider: Mckinley Randall, [address] [place], [address]. tel:[phone] Offic/outpt E&m Estab Low-mod [facility], [address] [address], [place], [place], [address], [place] tel:[phone] [facility] GI Symptoms or Concerns (chief complaint) Ulcerative Colitis NosRectal bleedingAbdominal pain, right lower quadrantDietary Surveil/world travel counselor 5 [facility] Cindi. [address] [place] [address], [facility] [place], [address] , [place]. tel:[phone] Referring Provider: Mckinley Randall, [address] [place], [address]. tel:[phone] [facility], [address] [address], [place], [place], [address], [place] tel:[phone] [facility] Colon polypUlcerative Colitis NosBenign Neoplasm Colon 4 Lei Butt. [address] [place] [address] [address], [facility] [place], [place], [address] , [place]. tel:[phone] Referring Provider: Mckinley Randall, [address] [place], [address]. tel:[phone] [facility], [address] [address], [place], [place], [address], [place] tel:[phone] [facility] IBD 4 Lei Butt. [address] [facility], [address], [place], [address] , [place]. tel:[phone] Offic Cons New/estab Mod [facility], [address] [address], [place], [address], [place] tel:[phone] [facility] GI Symptoms or Concerns (chief complaint) IBDDiarrheaGenerali sed abdominal painRectal bleedingDietary Surveil/world travel counselor 4 Lei Butt. [address] [facility], [address], [place], [id number] , [place]. [phone] Referring Provider: Mckinley Randall, [address] [place] [address], [address]. tel:[phone] [facility], [address] [address], [place], [address], [place] tel:[phone] [facility] No Information 1 Lizeth Fernandes. [address] [facility], [address], [place], [address] , [place]. tel:[phone] Referring Provider: Vaughn Dunn MD , [address], [address]. tel:[phone] Family History Family Member Type Diagnosis Age [...] Pneumococcal conjugate vacci ne 20-valent (PCV20), polysaccharide [id number] conjugate, adjuvant, preservative free administered Note: [facility] bi-direct ional interface ; [...] Provider Payers Payer name Insurance type Covered green party ID Authoriza tion(s) [employer] [place] [employer] [id number] Social History Type Description Quantity Date Captured Comments Alcohol Use Details Unknown Caffeine Use Details Unknown Tobacco Use Status No Information Smoking Status No Information Sex Female Chief Complaint And Reason For Visit No Information Reason For Referral Reason For Referral No Information Plan Of Treatment Date Type Action Status Goal Colonoscopy. Due on due Goal Hep B Vaccine (1st) due Goal Herpes Zoster - Shingrix (2n d). Due on due Goal Hep B Vaccine (2nd) due Goal Hep A Vaccine (1st) due Goal Cervical PAP smear. Due on J due Goal Tdap. Due on due Goal Vitamin D, 25-Hydroxy. Due o n due Goal Prevnar 20 due Goal Hep A Vaccine (2nd) due Goal DEXA Bone Density Study. Due on due Goal Herpes Zoster - Shingrix (1s t). Due on due Goal Dermatology - Skin Screening . Due on due Goal Smoking status. Due on due Goal Hep B Vaccine (2nd) due Goal Cervical PAP smear. Due on N due Goal Herpes Zoster - Shingrix (1s t). Due on due Goal Vitamin D, 25-Hydroxy. Due o n due Goal Dermatology - Skin Screening . Due on due Goal Tdap. Due on due Goal Colonoscopy. Due on due Goal Hep B Vaccine (1st) due Goal DEXA Bone Density Study. Due on due Goal Hep A Vaccine (2nd) due Goal Influenza. Due on 4 due Goal Hep A Vaccine (1st) due Goal Herpes Zoster - Shingrix (2n d). Due on due Goal Prevnar 20 due Goal Smoking status. Due on due Goal Vitamin D, 25-Hydroxy. Due o n due Goal Herpes Zoster - Shingrix (2n d). Due on due Goal Smoking status. Due on due Goal Hep A Vaccine (1st) due Goal Hep B Vaccine (1st) due Goal Hep B Vaccine (2nd) due Goal Herpes Zoster - Shingrix (1s t). Due on due Goal Tdap. Due on due Goal Prevnar 20 due Goal DEXA Bone Density Study. Due on due Goal Hep A Vaccine (2nd) due Goal Influenza. Due on 4 due Goal Dermatology - Skin Screening . Due on due Goal Colonoscopy. Due on 024 due Goal Cervical PAP smear. Due on O due Goal Lifestyle education regardin g diet completed Goal Lifestyle education regardin g diet completed Goal Lifestyle education regardin g diet completed Goal Lifestyle education regardin g diet completed Goal Lifestyle education regardin g diet completed Goal Lifestyle education regardin g diet completed Goal Lifestyle education regardin g diet completed Referral Ordered: referred to Hematology persistent leukopenia ordered Referral Ordered: Creatinine Appointment date/timeframe: 05/31/2024 ordered Referral Ordered: BUN Appointment date/timeframe: 05/31/2024 ordered Referral Ordered: Hepatic Function Panel Appointment date/timeframe: 09/27/2022 ordered Referral Ordered: Thyroid Pierce Profile Appointment date/timeframe: 09/27/2022 ordered Referral Ordered: [...] GI Symptoms or Concerns Patient is a 69-year-old female with 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 She was last seen in GI clinic in April 2023. She is on sulfasalazine 3 pills twice daily as well as folic acid 1 mg daily for treatment of her indeterminate colitis. She is also on omeprazole 20 mg twice daily for treatment of her heartburn. She reports she is doing well and denies any GI symptoms at this time. She never saw the artist and repertoire manager that was recommended due to her chronic mild leukocytosis. I reviewed her labs from September 2023 this revealed a normal BUN and creatinine. Her CBC from May 2023 showed a persistent low white blood cell count but otherwise normal CBC. Her LFTs were normal in May 2023. Her vitamin D level was also normal in May 2023. 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 She also has [...] in November 2022. She never saw her artist and repertoire manager for the mild persistent leukopenia on her labs. GI Symptoms or Concerns Patient is a 67-year-old female had an in-person visit today for follow-up of indeterminate colitis and heartburn and constipation. Patient was last seen in GI clinic in August of this year. She was initially diagnosed with indeterminate colitis at the [facility] in 2010. She was on [...] leukopenia. I have referred her to her artist and repertoire manager again for follow-up of the leukopenia. Patient reports that she continues to do well and denies current GI symptoms. She reports a rash on her legs and feet and she has been following with a supervisor cab. She had an MR enterography in September [...] was diagnosed with indeterminate colitis at the [facility] in 2010. This seemed to [...] reports her last upper endoscopy was at [facility] in 2010 or 2009 or 2011. GI Symptoms or Concerns The mina ent is a 63-year-old female who is here for followup with indeterminate colitis diagnosed at the [facility] in 2010. The patient's intermittent [...] and her will be retiring in the sc GI Symptoms or Concerns The symp toms [...] was diagnosed with indeterminate colitis at the [facility] in 2010. Her disease seemed [...] was diagnosed with indeterminate colitis at the [facility] in 2010. Her last colonoscopy [...] that when she was seen at the [facility], they were unsure which one [...] she did make an appointment here in [facility]. On top of her bloating and lower [...] reports she was eventually seen at the [facility] who confirmed inflammatory bowel disease, [...] Information Instructions Date Instruction Additional Infor nate -Labs as ordered - i f white blood cell count still low then patient will schedule an appointment with a artist and repertoire manager soon for follow-up -Continue sulfasalazine 3 tabs twice daily and folic acid 1 mg daily-Protocol labs while on sulfasalazine-Repeat colonoscopy with double prep with TI eval and random colon biopsies for dysplasia surveillance in 10/2024-Avoid NSAIDs-Calcium and vitamin D-Patient has declined any vaccines (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)-Patient prefers follow-up in 1 year Related to Indeterminate colitis -Continue omeprazole 20 mg twice daily Related to Heartburn -Patient will follow -up with her PCP soon regarding persistent dry cough Related to Cough, unspecified type -Labs as ordered - i f white blood cell count still low then patient will schedule an appointment with her artist and repertoire manager soon for follow-up -Continue sulfasalazine 3 tabs twice daily and folic acid 1 mg daily-Repeat colonoscopy with double prep with TI eval and random colon biopsies for dysplasia surveillance in 10/2024-Avoid NSAIDs-Calcium and vitamin D-Patient has declined any vaccines (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)-Patient prefers follow-up in 1 year Related to Indeterminate colitis -Continue omeprazole 20 mg twice daily Related to Heartburn -Patient will schedu le an appointment with her artist and repertoire manager soon for follow-up of her mild persistent [...] results of last EGD reportedly performed at [facility] in 2009 or 2010-EGD to [...] after prior flu vaccine)-Miralax as needed for jyvxukbjldsj-Uyvcxe-ac in 2 months, after all testing completed Related to Indeterminate colitis -Repeat colonoscopy with double prep with TI eval and random colon biopsies in 06/2023 Related to Personal history of colonic polyps -Labs as ordered-Con tinue lialda 4.8 grams daily-Avoid NSAIDs-Calcium and vitamin D-Patient declined any vaccines (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)-Miralax as needed for nrjxrfpjiwip-Rapmyu-ve in 1 year Related to Inflammatory bowel [...] reassess microscopic disease extent-Miralax as needed for uermaqsdueze-Bqapia-ea in 2 months, after colonoscopy Related to [...] in 2013 and to reassess microscopic disease aahgza-Bdhchk-tk in 1 year Related to IBD (inflammatory [...] consider flex sig with biopsies for further anziwbtnhd-Ssrjii-rj in 2 months Related to IBD (inflammatory bowel disease) Lifestyle education regarding di et Related to Dietary counseling and surveillance MRI Enterography WIT HOUT And WITH Contrast Lifestyle education regarding di et Related to Dietary surveillance and counseling Colon Cancer Prevention Related to Colon polyp Colon Polyps Related to Colon polyp -Labs as ordered-Sto ol infectious studies-CT enteroraphy-Colonoscopy with TI and colon biopsies-Lialda 4.8 grams daily-Discontinue naltrexone-Avoid NSAIDs-Calcium and vitamin D-Patient declined influenza and pneumovax vaccines-Bone density scan in near dgkvzn-Ehoaqa-fr in 1 month Related to Rectal bleeding [...]
[2024-08-17 10:41] VITALS: BP 150/84; PULSE 60; RESP 18; TEMP 36.3; O2SAT 98; BMI 36.6
--- NOTE | 2024-08-17 10:53 | ED_ITS ---
HPI - Fall General Time Seen by Provider: 10:53 Date Seen: 08/17/24 Chief Complaint: Fall/Minor Trauma Stated Complaint: fell down 4 steps, pain on both sides/ribs as wel Time Seen by Provider: 08/17/24 10:52 Source: patient and RN notes reviewed Mode of arrival: ambulatory Limitations: no limitations History of Present Illness HPI Narrative: This 69-year-old female is coming to the ER with complaint of a fall with right knee pain, left hip pain and left chest wall pain. She was getting ready to go to a , caught the heel of her shoe going down steps and fell down about 4-5 steps. She believes she landed on the right side but maybe then bounced over to her left side. Her right knee hurts and this is a knee that has been replaced. She is feeling some pain in the left outer hip area and the left posterolateral rib area. It hurts to bear any weight on the right leg. She did need assistance getting into the car, came in in a wheelchair from the car. She had bilateral knee replacements in 2014, left knee is not bothering her. She did not hit her head, did not lose any consciousness. She has not had any mood altering substances. She is not on any blood thinners. The left chest hurts to take a deep breath but she is not having any difficulty breathing. No abdominal pain. No numbness tingling anywhere. complaint: fall Related Data Home Medications ?Medication ?Instructions ?Recorded ?Confirmed cholecalciferol (vitamin D3) 125 10,000 unit PO DAILY 10/27/22 03/11/24 mcg (5,000 unit) tablet omega-3 fatty acids-fish oil 360 1 cap PO QDAY 10/27/22 03/11/24 mg-1,200 mg capsule (Fish Oil) folic acid 1 mg tablet 1 mg PO DAILY 01/25/23 03/11/24 sulfasalazine 500 mg tablet PO 01/25/23 03/11/24 fluticasone 250 mcg-salmeterol 50 1 inh inhalation Q12H 08/08/23 03/11/24 mcg/dose blistr powdr for inhalation (Advair Diskus) fluticasone 250 mcg-salmeterol 50 1 inh inhalation BID 11/06/23 03/11/24 mcg/dose blistr powdr for inhalation Previous Rx's ?Medication ?Instructions ?Recorded omeprazole 20 mg capsule,delayed 20 mg PO BID #180 caps 11/06/23 release simvastatin 40 mg tablet 40 mg PO QDAY #90 tabs 11/06/23 bupropion HCl 300 mg 24 hr tablet, 300 mg PO QAM #90 tabs 03/07/24 extended release Allergies Allergy/AdvReac Type Severity Reaction Status Date / Time adhesive Allergy Intermediate Rash Verified 08/17/24 10:41 latex Allergy Intermediate Rash, Verified 08/17/24 10:41 itching Review of Systems Status of ROS: Reports: 6 or more systems reviewed and unremarkable except as noted in History and below [facility] Medical History History of renal calculi ?Z87.442 - Personal history of urinary calculi (ICD-10) Surgical History History of bladder suspension procedure (03/14/17) ?Z98.890 - Other specified postprocedural states (ICD-10) ?Z87.448 - Personal history of other diseases of urinary system (ICD-10) H/O gastric sleeve ?Z90.3 - Acquired absence of stomach [part of] (ICD-10) History of total knee replacement ?Z96.659 - Presence of unspecified artificial knee joint (ICD-10) History of tubal ligation ?Z98.51 - Tubal ligation status (ICD-10) History of plastic surgery ?Z98.890 - Other specified postprocedural states (ICD-10) History of sinus surgery ?Z98.890 - Other specified postprocedural states (ICD-10) Family History Sister Ovarian cancer Colon cancer Father Lung cancer Social History Narrative: Non-smoker. 3-5 glasses of wine per week. 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 [employer] What is your current living situation?: I presently have a place to live Problems where you live: no known problems In the past 12 months, utilities in danger of being shut off: no In past 12 months, lack of transportation kept you from medical appts, meetings, work, or getting things needed for daily living: no In the past 12 mos, have been you worried that your food would run out before you had money to buy more?: never true In the past 12 mos, the food you bought just didn't last and you didn't have money to buy more?: never true Smoking Status: Never smoker Do you use any of these nicotine containing products: None Second hand tobacco smoke exposure: No How often do you have a drink containing alcohol: 2-3 times a week How many standard drinks containing alcohol do you have on a typical day: 1 or 2 How often do you have six or more drinks on one occasion: Never AUDIT-C Alcohol total score: 3 Non-prescribed substance use: denies use How often does anyone, including family, friends and others, physically hurt you : never How often does anyone, including family, friends and others, insult or talk down to you: never How often does anyone, including family, friends and others, threaten you with harm: never How often does anyone, including family, friends and others, scream or curse at you: never service: No Exam Const: Vital Signs, click to edit/add: Vital Signs - 24 hr 08/17/24 10:41 Temperature 97.3 F L Pulse Rate [Pulse Oximeter] 60 Respiratory Rate 18 Blood Pressure [Le ft Forearm] 150/84 H Pulse Oximetry 98 Oxygen Delivery Me thod Room Air This 69-year-old female is alert, interactive, no apparent distress but lying flat in the ED bed in room 6. Face atraumatic, pupils equal round reactive, sclera clear come speak in complete sentences. No midline tenderness of her neck, no neck masses or adenopathy. Lungs are clear, good air entry, no wheeze or crackles, no tachypnea. No midline tenderness over back. She has pain along the left lower posterolateral chest wall without any crepitus or step-off. CV regular rate and rhythm, no murmur, normal S1-S2, no S3-S4. Moving arms, no complaints with range of motion through shoulders and arms. No traumatic change. No anterior chest wall tenderness on palpation. Abdomen soft, nontender, no rebound or guarding. She has scars over her knees anteriorly, note no traumatic change. Her right knee is slightly bent, up elevated on a pillow. She has thicker soft tissues of her lower extremities but do not note any point tenderness over this knee, no effusion. Neurovascular is intact. Likewise, no traumatic [employer] the left lateral hip. She has some tenderness over the left hip. Range of motion does give her pain laterally over the left hip. There is no foreshortening of this extremity. Range of motion is not excruciating, neurovascular is intact throughout. Documenting provider has reviewed patient's vital signs: yes Course Course ED Course: Will do x-ray images of her chest with left rib views, left hip and pelvis in rate need to rule out fracture. See no overlying skin changes or tissue changes suggestive of significant injury like hematoma but will image with x-rays. She will let us know if she has other areas that are starting to become problematic or hurt. We will place an IV, put her on pulse oximetry. Will give her some IV morphine and cover nausea was Gissellan, this is to help with pain management before x-ray imaging. We certainly need to rule out fractures and if there is any concern of fracture of her right knee, will likely need transfer to a tertiary institution. Reevaluation(s) Time of Reevaluation #1: 12:24 Reevaluation #1: Have reviewed with Jarrett that there is no evidence of any fractures on her x-ray imaging. She is happy to hear this. They do have a walker at home, do think that they should pull this out to help with gait until she is improving. Reviewed with her that I would not consider putting her in a knee immobilizer as she has a knee replacement in do not want her to get any restriction in mo bility. If she has ongoing pain, she needs to follow up with Orthopedics. Did revision [employer] is her hip and there is no evidence of traumatic bruising. Vital Signs Vital signs: Initial Vital Signs Temperature 97.3 F L 08/17/24 10:41 Temperature Source Temporal Artery Scan 08/17/24 10:41 Pulse Rate 60 08/17/24 10:41 Pulse Rhythm Regular 08/17/24 10:41 Respiratory Rate 18 08/17/24 10:41 Blood Pressure 150/84 H 08/17/24 10:41 Blood Pressure Mean 106 H 08/17/24 10:41 Blood Pressure Position Supine 08/17/24 10:41 Pulse Oximetry 98 08/17/24 10:41 Oxygen Delivery Method Room Air 08/17/24 10:41 Vital Signs Temperature 97.3 F L 08/17/24 10:41 Pulse Rate 60 08/17/24 10:41 Respiratory Rate 18 08/17/24 10:41 Blood Pressure 150/84 H 08/17/24 10:41 Pulse Oximetry 98 08/17/24 10:41 Oxygen Delivery Method Room Air 08/17/24 10:41 Temperature 97.3 F L 08/17/24 10:41 Pulse Rate 60 08/17/24 10:41 Respiratory Rate 18 08/17/24 10:41 Blood Pressure 150/84 H 08/17/24 10:41 Pulse Oximetry 98 08/17/24 10:41 Oxygen Delivery Method Room Air 08/17/24 10:41 Medications Administered Medications: Discontinued Medications Generic Name Dose Route Start Last Admin Trade Name Freq PRN Reason Stop Dose Admin Morphine Sulfate 4 mg 08/17/24 10:59 08/17/24 11:22 Morphine 4 Mg/Ml Inj IVP 08/17/24 11:00 4 mg ONCE ONE Administration Ondansetron HCl 4 mg 08/17/24 10:59 08/17/24 11:22 Ondansetron 2 Mg/Ml Inj IVP 08/17/24 11:00 4 mg ONCE ONE Administration MDM - Fall Imaging Data Chest x-ray: Attestation: I have reviewed the pertinent imaging results. My impression: I see no evidence of acute rib fracture or traumatic change of the lungs on my preliminary review. Radiologist's impression: Patient: JARRETT OGDEN Facility:?[facility] Patient ID:?[id number] Site Patient ID:?[id number]. Site :?[id number] Study:?XRay-Chest Left ribs w/ CXR-08/17/2024 11:45:57 AM Ordering Physician:Paloma Espitia Final Report: INDICATION: Fall TECHNIQUE: PA chest and left ribs. FINDINGS: The lungs are clear. There is no evidence of pulmonary contusion, pneumothorax or pleural effusion. The heart and pulmonary vessels are of normal size. Oblique detail views of the ribs demonstrate no evidence of fracture or intrinsic bone lesion. There is no evidence of pleural hematoma. IMPRESSION: Negative chest and left ribs. Dictated by Mariela Subramanian MD @ 08/17/2024 12:09:03 PM (Electronic Signature) XR right knee: Attestation: I have reviewed the pertinent imaging results. My impression: X-ray images reviewed, see no acute pathology on my preliminary review Radiologist's impression: Patient: JARRETT OGDEN Facility:?[facility] Patient ID:?[id number] Site Patient ID:?[id number]. Site :?[id number] Study:?XRay-Knee Right 2 view-08/17/2024 11:45:22 AM Ordering Physician:?León Espitia Final Report: INDICATION: Fall TECHNIQUE: Three views right knee FINDINGS/IMPRESSION: Normal alignment. No acute fracture or acute osseous abnormalities a right knee total arthroplasty in appropriate position. Mild soft tissue edema no large knee effusion. No acute fractures. Dictated by Mariela Subramanian MD @ 08/17/2024 12:07:42 PM (Electronic Signature) XR left hip/pelvis: Attestation: I have reviewed the pertinent imaging results. My impression: X-rays reviewed, do not appreciate any pelvic or hip fracture on my preliminary review. Radiologist's impression: Patient: JARRETT OGDEN Facility:?[facility] Patient ID:?[id number] Site Patient ID:?[id number]. Site :?1955 Study:?XRay-Hip Left 2 view with pelvis-08/17/2024 11:44:54 AM Ordering Physician:?León Espitia Final Report: INDICATION: Fall, left hip pain TECHNIQUE: X-ray left hip, Two views and a single view of the pelvis COMPARISON: X-ray pelvis and right hip 11/21/2022 FINDINGS: Mild joint space narrowing with marginal osteophytes bilaterally. Femoral head is well formed and well seated within the acetabulum. Negative for acute fracture or dislocation. The pelvic ring is intact. IMPRESSION: 1. 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 2. Negative for acute fracture. Dictated by Nahomi Zavala MD @ 08/17/2024 12:08:33 PM Dictated by: Nahomi Zavala MD @ 08/17/2024 12:08:44 (Electronic Signature) Discharge Plan Discharge Clinical Impression: Fall, Acute pain of right knee, Acute pain of left hip, Left-sided chest wall pain Patient Disposition: Home, Self-Care Condition: Stable Instructions: Knee Pain (ED), Chest Wall Pain (ED), Hip Pain (ED) Additional Instructions: Do recommend getting your walker out that you used for your knee replacement, this may help you ambulate for the next few days. Tylenol 1000 mg 3 times a day baseline for pain, can supplement with ibuprofen per bottle directions for additional pain needs. Do recommend putting ice to the painful areas the next couple days. If you are having ongoing hip or knee pain that is not improving over the next week, have new concerns or pain is worsening, do recommend re- evaluation. If you specifically are having ongoing knee pain, do recommend follow-up with the orthopedist. Activity Level: Activity as Tolerated Prescriptions: No Action sulfasalazine 500 mg tablet PO folic acid 1 mg tablet 1 mg PO DAILY fluticasone propion-salmeterol [Advair Diskus] 250-50 mcg/dose blister with device 1 inh inhalation Q12H cholecalciferol (vitamin D3) 125 mcg (5,000 unit) tablet 10,000 unit PO DAILY omega-3 fatty acids-fish oil [Fish Oil] 360-1,200 mg capsule 1 cap PO QDAY fluticasone propion-salmeterol 250-50 mcg/dose blister with device 1 inh inhalation BID simvastatin 40 mg tablet 40 mg PO QDAY Qty: 90 3RF omeprazole 20 mg capsule,delayed release(DR/EC) 20 mg PO BID Qty: 180 3RF bupropion HCl 300 mg tablet extended release 24 hr 300 mg PO QAM Qty: 90 1RF Follow Up/Referrals: Sharda Jaimes MD [Primary Care Provider] - Stand Alone Forms: [employer] Info Instructions
--- NOTE | 2024-08-17 10:59 | CRLHL7_ITS ---
For Patients: As a result of the Century Cures Act, medical imaging exams and procedure reports are released immediately into your electronic medical record. You may view this report before your referring provider. If you have questions, please contact your health care provider. INDICATION: Fall TECHNIQUE: Three views right knee FINDINGS/IMPRESSION: Normal alignment. No acute fracture or acute osseous abnormalities a right knee total arthroplasty in appropriate position. Mild soft tissue edema no large knee effusion. No acute fractures. Dictated by Mariela Subramanian MD @ 08/17/2024 12:07:42 PM (Electronically Signed)
--- NOTE | 2024-08-17 10:59 | CRLHL7_ITS ---
For Patients: As a result of the Cures Act, medical imaging exams and procedure reports are released immediately into your electronic medical record. You may view this report before your referring provider. If you have questions, please contact your health care provider. INDICATION: Fall TECHNIQUE: PA chest and left ribs. FINDINGS: The lungs are clear. There is no evidence of pulmonary contusion, pneumothorax or pleural effusion. The heart and pulmonary vessels are of normal size. Oblique detail views of the ribs demonstrate no evidence of fracture or intrinsic bone lesion. There is no evidence of pleural hematoma. IMPRESSION: Negative chest and left ribs. Dictated by Mariela Subramanian MD @ 08/17/2024 12:09:03 PM (Electronically Signed)
--- NOTE | 2024-08-17 10:59 | CRLHL7_ITS ---
For Patients: As a result of the Cures Act, medical imaging exams and procedure reports are released immediately into your electronic medical record. You may view this report before your referring provider. If you have questions, please contact your health care provider. INDICATION: Fall, left hip pain TECHNIQUE: X-ray left hip, Two views and a single view of the pelvis COMPARISON: X-ray pelvis and right hip 11/21/2022 FINDINGS: Mild joint space narrowing with marginal osteophytes bilaterally. Femoral head is well formed and well seated within the acetabulum. Negative for acute fracture or dislocation. The pelvic ring is intact. IMPRESSION: 1. 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 2. Negative for acute fracture. Dictated by Nahomi Zavala MD @ 08/17/2024 12:08:33 PM Dictated by: Nahomi Zavala MD @ 08/17/2024 12:08:44 (Electronically Signed)
[2024-08-17] MEDS: ONDANSETRON 2 MG/ML inj 4 MG IVP (11:22)
[2024-08-17] MEDS: MORPHINE 4 MG/ML INJ IVP (11:22)
[2024-08-17] MEDS: ACETAMINOPHEN 500 MG TABLET 1000 MG PO (12:57)
[2024-08-17] MEDS: MORPHINE 2 MG/ML inj IVP (12:58)
== END 2024-08-17 13:12 | disposition home or self-care (01) ==
PROVIDERS: Emergency Provider Family Medicine; PCP Internal Medicine
DX: M25.561 Pain in right knee (principal); M25.552 Pain in left hip; R07.89 Other chest pain; W01.198A Fall on same level from slipping, tripping and stumbling with subsequent striking against other object, initial encounter
CPT/HCPCS: 71101; 73502; 73560; 94761; 96374; 96375; 96376; 99284; A9270; J2270; J2405

== ENCOUNTER 2024-08-20 16:46 | Emergency (ER) | payer MEDICARE, BC, SELFPAY ==
[2024-08-20] VITALS (18 sets, daily range): BP systolic 86–155; BP diastolic 57–108; PULSE 64–79; RESP 10–20; TEMP 36.6; O2SAT 92–100; BMI 36.6
--- OUTSIDE RECORDS SUMMARY | 2024-08-20 16:48 | XMS_ITS | Clinical Summary ---
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 CHOL/HDL RATIO 4.28 <4.51 [facility] LDL CHOLESTEROL 154(H) <131 mg/dL [facility] PATIENT STATUS Fasting [facility] 12/19/2005 8:13 AM CDT 12/19/2005 8:13 AM CDT us Irving Lindsey MD CHEMISTRY Final Result [facility] [address] [place] [address] from Last 3 Months or Most Recently Relevant to Health Maintenance Insurance [employer] [place] [employer] [place] ONLY Care Teams Tag Meter Operator Relationship Specialty Start Date End Date Mckinley Reich MD [address] [place] [address] PCP - General Emergency Medicine 07/04/16
--- NOTE | 2024-08-20 17:09 | CRLHL7_ITS ---
For Patients: As a result of the Cures Act, medical imaging exams and procedure reports are released immediately into your electronic medical record. You may view this report before your referring provider. If you have questions, please contact your health care provider. INDICATION: Pain after fall. TECHNIQUE: Chest 1 view. COMPARISON: August 17, 2024. FINDINGS: Cardiovascular and mediastinum: Cardiomediastinal silhouette is within normal limits. Lungs and pleural spaces: Lungs are clear. No evidence of pleural effusion. No pneumothorax identified. Bones and soft tissues: Unremarkable. IMPRESSION: No acute cardiopulmonary process identified. No significant interval change. Dictated by Tani Whalen MD @ 08/20/2024 6:41:39 PM (Electronically Signed)
--- NOTE | 2024-08-20 17:09 | CRLHL7_ITS ---
For Patients: As a result of the Century Cures Act, medical imaging exams and procedure reports are released immediately into your electronic medical record. You may view this report before your referring provider. If you have questions, please contact your health care provider. Indication: PAIN AFTER FALL Technique: Two views of the right shoulder. Comparison: None. Findings: Moderately impacted right humeral neck fracture. Mild degenerative changes of the acromioclavicular and glenohumeral joints. Impression: Moderately impacted right humeral neck fracture. Dictated by Ron Mcelroy MD @ 08/20/2024 6:30:54 PM (Electronically Signed)
--- NOTE | 2024-08-20 17:10 | ED.GENADULT ---
HPI - General Adult General Chief complaint: Fall/Minor Trauma Stated complaint: Fall, arm trauma Time Seen by Provider: 08/20/24 17:10 History of Present Illness HPI narrative: Patient reports fall today from standing where arm was going two different directions. Has must extreme pain in left upper arm but also reports pain in numerous other areas from a fall last week. 69-year-old woman presenting to the emergency department via EMS after a fall. Has had some trouble with her right leg having just had a fall evaluated through this emergency department 3 days ago. Contusions and pains. Today caught her right leg and fell into a chair. Injured her left arm in particular and has pain elsewhere she thinks from how she was laying on her right arm. Also has pain in her chest. Crying out in apparently severe pain and requesting pain medication. Denies neck or back pain otherwise. Review of records shows being seen for lumbar radiculopathy with right sided symptoms Related Data Home Medications ?Medication ?Instructions ?Recorded ?Confirmed cholecalciferol (vitamin D3) 125 10,000 unit PO DAILY 10/27/22 03/11/24 mcg (5,000 unit) tablet omega-3 fatty acids-fish oil 360 1 cap PO QDAY 10/27/22 03/11/24 mg-1,200 mg capsule (Fish Oil) folic acid 1 mg tablet 1 mg PO DAILY 01/25/23 03/11/24 sulfasalazine 500 mg tablet PO 01/25/23 03/11/24 fluticasone 250 mcg-salmeterol 50 1 inh inhalation Q12H 08/08/23 03/11/24 mcg/dose blistr powdr for inhalation (Advair Diskus) fluticasone 250 mcg-salmeterol 50 1 inh inhalation BID 11/06/23 03/11/24 mcg/dose blistr powdr for inhalation Previous Rx's ?Medication ?Instructions ?Recorded omeprazole 20 mg capsule,delayed 20 mg PO BID #180 caps 11/06/23 release simvastatin 40 mg tablet 40 mg PO QDAY #90 tabs 11/06/23 bupropion HCl 300 mg 24 hr tablet, 300 mg PO QAM #90 tabs 03/07/24 extended release Allergies Allergy/AdvReac Type Severity Reaction Status Date / Time adhesive Allergy Intermediate Rash Verified 08/17/24 10:41 latex Allergy Intermediate Rash, Verified 08/17/24 10:41 itching Review of Systems Status of ROS: Reports: 6 or more systems reviewed and unremarkable except as noted in History and below PFSH PFSH Medical History History of renal calculi ?Z87.442 - Personal history of urinary calculi (ICD-10) Surgical History History of bladder suspension procedure (03/14/17) ?Z98.890 - Other specified postprocedural states (ICD-10) ?Z87.448 - Personal history of other diseases of urinary system (ICD-10) H/O gastric sleeve ?Z90.3 - Acquired absence of stomach [part of] (ICD-10) History of total knee replacement ?Z96.659 - Presence of unspecified artificial knee joint (ICD-10) History of tubal ligation ?Z98.51 - Tubal ligation status (ICD-10) History of plastic surgery ?Z98.890 - Other specified postprocedural states (ICD-10) History of sinus surgery ?Z98.890 - Other specified postprocedural states (ICD-10) Family History Sister Ovarian cancer Colon cancer Father Lung cancer Social History Narrative: Non-smoker. 3-5 glasses of wine per week. 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 [employer] What is your current living situation?: I presently have a place to live Problems where you live: no known problems In the past 12 months, utilities in danger of being shut off: no In past 12 months, lack of transportation kept you from medical appts, meetings, work, or getting things needed for daily living: no In the past 12 mos, have been you worried that your food would run out before you had money to buy more?: never true In the past 12 mos, the food you bought just didn't last and you didn't have money to buy more?: never true Smoking Status: Never smoker Do you use any of these nicotine containing products: None Second hand tobacco smoke exposure: No How often do you have a drink containing alcohol: 2-3 times a week How many standard drinks containing alcohol do you have on a typical day: 1 or 2 How often do you have six or more drinks on one occasion: Never AUDIT-C Alcohol total score: 3 Non-prescribed substance use: denies use How often does anyone, including family, friends and others, physically hurt you: never How often does anyone, including family, friends and others, insult or talk down to you: never How often does anyone, including family, friends and others, threaten you with harm: never How often does anyone, including family, friends and others, scream or curse at you: never service: No Exam Narrative: Exam Narrative: Lying tipped to her right somewhat in the exam bed. Cranial nerves 2-12 intact. GCS of 15. No bleeding evident. Supporting on airway. Does appear to be some deformity and swelling above the left elbow. Due to pain does not allow any significantly exam of this elbow. Is intact peripheral pulses and sensation however. Head looks to be atraumatic. She has pain to manipulation also the right shoulder such that I cannot adequately examine the right elbow. Any movement of the right arm cries out in pain the right shoulder. Here also intact pulses and sensation. Able to raise both legs independently from the bed without notable difficulty. Heart in regular rate and rhythm. Lungs appear to be clear. No pain to palpation over the abdomen or pelvis. Later able to reach somewhat under the back to palpate but due to discomfort did not roll or sit this patient up completely to examine the back. Did not appear to have isolated back tenderness or deformity. Const: Vital Signs, click to edit/add: Vital Signs - 24 hr 08/20/24 16:57 08/20/24 17:10 08/20/24 17:21 Temperature 97.8 F Pulse Rate 75 Pulse Rate [Pulse Oximeter] 79 Respiratory Rate 20 Blood Pressure Blood Pressure [Ri ght Upper Arm] 134/94 H Pulse Oximetry 100 99 100 Oxygen Delivery Me thod Room Air 08/20/24 17:30 08/20/24 17:45 08/20/24 17:55 Temperature Pulse Rate 77 69 65 Pulse Rate [Pulse Oximeter] Respiratory Rate Blood Pressure 154/90 H Blood Pressure [Ri ght Upper Arm] Pulse Oximetry 100 100 100 Oxygen Delivery Me thod 08/20/24 17:56 08/20/24 18:00 08/20/24 18:15 Temperature Pulse Rate 66 64 73 Pulse Rate [Pulse Oximeter] Respiratory Rate Blood Pressure Blood Pressure [Ri ght Upper Arm] Pulse Oximetry 100 92 100 Oxygen Delivery Me thod 08/20/24 18:22 08/20/24 18:27 08/20/24 18:30 Temperature Pulse Rate 65 70 72 Pulse Rate [Pulse Oximeter] Respiratory Rate 12 Blood Pressure 86/57 L 151/78 H Blood Pressure [Ri ght Upper Arm] Pulse Oximetry 100 100 98 Oxygen Delivery Me thod 08/20/24 18:34 08/20/24 18:42 08/20/24 18:45 Temperature Pulse Rate 65 65 69 Pulse Rate [Pulse Oximeter] Respiratory Rate 12 10 L Blood Pressure 155/79 H 134/108 H Blood Pressure [Ri ght Upper Arm] Pulse Oximetry 98 98 98 Oxygen Delivery Me thod Documenting provider has reviewed patient's vital signs: yes Course Vital Signs Vital signs: Initial Vital Signs Temperature 97.8 F 08/20/24 16:57 Temperature Source Temporal Artery Scan 08/20/24 16:57 Pulse Rate 79 08/20/24 16:57 Respiratory Rate 20 08/20/24 16:57 Blood Pressure 134/94 H 08/20/24 16:57 Blood Pressure Mean 107 H 08/20/24 16:57 Pulse Oximetry 100 08/20/24 16:57 Oxygen Delivery Method Room Air 08/20/24 16:57 Vital Signs Temperature 97.8 F 08/20/24 16:57 Pulse Rate 79 08/20/24 16:57 Respiratory Rate 20 08/20/24 16:57 Blood Pressure 134/94 H 08/20/24 16:57 Pulse Oximetry 100 08/20/24 16:57 Oxygen Delivery Method Room Air 08/20/24 16:57 Temperature 97.8 F 08/20/24 16:57 Pulse Rate 75 08/20/24 19:25 Respiratory Rate 20 08/20/24 19:25 Blood Pressure 152/59 H 08/20/24 18:52 Pulse Oximetry 100 08/20/24 19:25 Oxygen Delivery Method Room Air 08/20/24 19:25 Medications Administered Medications: Discontinued Medications Generic Name Dose Route Start Last Admin Trade Name Freq PRN Reason Stop Dose Admin Fentanyl 50 mcg 08/20/24 17:32 08/20/24 17:36 Fentanyl 100 Mcg/2 Ml Inj IVP 08/20/24 17:33 50 mcg ONCE ONE Administration Fentanyl 50 mcg 08/20/24 18:11 08/20/24 18:16 Fentanyl 100 Mcg/2 Ml Inj IVP 08/20/24 18:12 50 mcg ONCE ONE Administration Hydromorphone HCl 1 mg 08/20/24 17:19 08/20/24 17:29 Hydromorphone 0.5 Mg/0.5 Ml Inj IVP 08/20/24 17:20 1 mg ONCE ONE Administration Hydromorphone HCl 0.5 mg 08/20/24 19:15 08/20/24 19:20 Hydromorphone 0.5 Mg/0.5 Ml Inj IVP 08/20/24 19:16 0.5 mg ONCE ONE Administration Sodium Chloride 1,000 mls @ 1,000 mls/hr 08/20/24 17:19 08/20/24 18:54 0.9 % Sodium Chloride 1000 Ml IV 08/20/24 18:18 Infused .Q1H ONE Infusion Lorazepam 0.5 mg 08/20/24 18:16 08/20/24 18:25 Lorazepam 2 Mg/Ml Inj IVP 08/20/24 18:17 0.5 mg ONCE ONE Administration Medical Decision Making MDM Narrative Medical decision making narrative: IV has been initiated. We will be ordering for mg of Dilaudid and then imaging has been ordered for the left elbow the right shoulder and chest. Does not appear to have sustained head injury. Need to control pain before can do adequate exam. Given a dose of lorazepam I think to help her relax a little bit. Ordered also for bumps of fentanyl. Normal saline IV. I did independently review images of the left upper arm, chest and right shoulder. Clearly a comminuted displaced humeral diaphysis fracture on the left and a displaced, impacted femoral neck fracture on the right. Radiology over-reads below Indication: PAIN AFTER FALL Technique: Two views of the left humerus. Comparison: None. Findings: Moderately comminuted and displaced humeral diaphyseal fracture. Impression: Moderately comminuted and displaced humeral diaphyseal fracture. PAIN AFTER FALL Technique: Two views of the right shoulder. Comparison: None. Findings: Moderately impacted right humeral neck fracture. Mild degenerative changes of the acromioclavicular and glenohumeral joints. Impression: Moderately impacted right humeral neck fracture. Anticipating potential admission to this facility for repair and pain management, did discuss with and communicate images to orthopedics. Clearly both will require surgical intervention. We do not have the materials available to do both at this time in the hospital. Complicated repair as well so recommending trauma center intervention. [place] [facility] [place] though then due to family request placed a call to [facility] who are also accepting through their emergency department. Prior to transport with multiple assist placed combination of posterior left arm coaptation posterior splint on the left arm with elbow at approximately 90? of flexion. Ortho glass splint also placed on the right arm; coaptation and sugar-tong. Propping arms further to limit movement. Did not appear to be possible to place in arm slings or bindings otherwise. Dosed again with Dilaudid prior to ambulance transport to [facility] ED Lab Data Labs: Lab Results 08/20/24 Range/Units Unknown SARS-CoV-2 (PCR) Negative SARS-CoV-2 (Negative) Influenza Type A (PCR) Negative PCR FLU A (Negative) Influenza Type B (PCR) Negative PCR FLU B (Negative) RSV (PCR) Negative PCR RSV (Negative) Critical Care Time Critical Care Time Critical Care Time: Yes Attestation: The patient required my highest level preparedness to intervene emergently and I personally spent this critical care time directly and personally managing the patient. This critical care time included: Obtaining a history; Examining the patient; Pulse oximetry; Ordering and reviewing of studies; Arranging urgent treatment with development of a management plan; Evaluation of patients response to treatment; Frequent reassessment discussions with other providers. This critical care time was performed to assess and manage the high probability of imminent life-threatening deterioration that could result in multiorgan failure. It was exclusive of separate billable procedures and treating other patients and teaching time. Total Critical Care Time in Minutes: 70 Discharge Plan Discharge Clinical Impression: Comminuted left humeral fracture, Closed fracture of neck of right humerus, Severe shoulder pain Patient Disposition: Xfer [facility] Discharge Location: [facility] Condition: Stable Prescriptions: No Action sulfasalazine 500 mg tablet PO folic acid 1 mg tablet 1 mg PO DAILY fluticasone propion-salmeterol [Advair Diskus] 250-50 mcg/dose blister with device 1 inh inhalation Q12H cholecalciferol (vitamin D3) 125 mcg (5,000 unit) tablet 10,000 unit PO DAILY omega-3 fatty acids-fish oil [Fish Oil] 360-1,200 mg capsule 1 cap PO QDAY fluticasone propion-salmeterol 250-50 mcg/dose blister with device 1 inh inhalation BID simvastatin 40 mg tablet 40 mg PO QDAY Qty: 90 3RF omeprazole 20 mg capsule,delayed release(DR/EC) 20 mg PO BID Qty: 180 3RF bupropion HCl 300 mg tablet extended release 24 hr 300 mg PO QAM Qty: 90 1RF Stand Alone Forms: [facility] Info Instructions
[2024-08-20] MEDS: HYDROmorphone 0.5 mg/0.5 ml inj 1 MG IVP (17:29)
[2024-08-20] MEDS: 0.9 % SODIUM CHLORIDE 1000 ml 1,000 ML IV (17:29)
--- NOTE | 2024-08-20 17:33 | CRLHL7_ITS ---
For Patients: As a result of the Cures Act, medical imaging exams and procedure reports are released immediately into your electronic medical record. You may view this report before your referring provider. If you have questions, please contact your health care provider. Indication: PAIN AFTER FALL Technique: Two views of the left humerus. Comparison: None. Findings: Moderately comminuted and displaced humeral diaphyseal fracture. Impression: Moderately comminuted and displaced humeral diaphyseal fracture. Dictated by Ron Mcelroy MD @ 08/20/2024 6:28:20 PM (Electronically Signed)
[2024-08-20] MEDS: fentaNYL 100 MCG/2 ML inj 50 MCG IVP ×2 (17:36→18:16)
[2024-08-20 18:02] LABS: PCR FLU A Negative PCR FLU A (Negative); PCR FLU B Negative PCR FLU B (Negative); PCR RSV Negative PCR RSV (Negative); SARS PCR* Negative SARS-CoV-2 (Negative)
--- OUTSIDE RECORDS SUMMARY | 2024-08-20 18:07 | XMS_ITS | Clinical Summary ---
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 Gender Identity Not on file Sexual Orientation [...] 97.5 kg (215 lb) 06/10/2020 10:02 AM LICENSED CLINICIAN Height 164.6 cm (5' 4.8) 03/11/2016 9:37 [...] CDT) CHOLESTEROL,TOTAL 227(H) 110 - 199 mg/dL [facility] TRIGLYCERIDES 102 <150 mg/dL [facility] HDL CHOLESTEROL 53 >40 mg/dL [facility] CHOL/HDL RATIO 4.28 <4.51 [facility] LDL CHOLESTEROL 154(H) <131 mg/dL [facility] PATIENT STATUS Fasting [facility] 12/19/2005 8:13 AM CDT 12/19/2005 8:13 AM CDT us Irving Lindsey MD CHEMISTRY Final Result [facility] [address] [place] [address] from Last 3 Months or Most Recently Relevant to Health Maintenance Insurance [employer] BLUE MR PB ONLY Care Teams Voucher Clerk Relationship Specialty Start Date End Date Mckinley Reich MD [address] [place] [address] PCP - General Emergency Medicine 07/04/16
[2024-08-20] MEDS: LORazepam 2 MG/ML inj 0.5 MG IVP (18:25)
[2024-08-20] MEDS: HYDROmorphone 0.5 mg/0.5 ml inj IVP (19:20)
== END 2024-08-20 19:33 | disposition other institution (70) ==
PROVIDERS: Emergency Provider Family Medicine; PCP Internal Medicine
DX: S42.352A Displaced comminuted fracture of shaft of humerus, left arm, initial encounter for closed fracture (principal); S42.211A Unspecified displaced fracture of surgical neck of right humerus, initial encounter for closed fracture; W01.190A Fall on same level from slipping, tripping and stumbling with subsequent striking against furniture, initial encounter
CPT/HCPCS: 71045; 73030; 73060; 87631; 93005; 94761; 99284; 99291; J1171; J2060; J3010; J7030

== ENCOUNTER 2024-08-20 19:21 | Outpatient (CLI) | payer MEDICARE, BC, SELFPAY | END 2024-08-20 19:22 | disposition home or self-care (01) | PROVIDERS: PCP Internal Medicine; Visit Provider Family Medicine | DX: S42.211A Unspecified displaced fracture of surgical neck of right humerus, initial encounter for closed fracture (principal); S42.302A Unspecified fracture of shaft of humerus, left arm, initial encounter for closed fracture | CPT/HCPCS: A0425; A0434 ==

== ENCOUNTER 2024-10-31 07:45 | Outpatient (CLI) | payer MEDICARE, BC, SELFPAY | END 2024-10-31 07:46 | disposition home or self-care (01) | LOC: NFLDREF 11-04 00:34 | PROVIDERS: PCP Internal Medicine; Referring Provider Internal Medicine; Visit Provider Internal Medicine | DX: E78.5 Hyperlipidemia, unspecified (principal); M85.80 Other specified disorders of bone density and structure, unspecified site | CPT/HCPCS: 80061; 82306 ==

== ENCOUNTER 2024-12-16 15:27 | Outpatient (CLI) | payer MEDICARE, BC, SELFPAY ==
[2024-12-16 16:00] LABS: Basophils Absolute Auto 0.01 K/uL (0.00-0.30); Basophils Percent Auto 0.2 % (0.0-3.0); Eosinophils Absolute Auto 0.25 K/uL (0.00-0.50); Eosinophils Percent Auto 5.3 % (0.0-7.0); Hematocrit 41.4 % (33.0-51.0); Hemoglobin* 13.4 gm/dL (12.0-16.0); Immature Granulocytes Abs Auto 0.01 K/uL (0.00-0.30); Immature Granulocytes Pct Auto 0.2 %; Lymphocytes Absolute Auto 1.49 K/uL (0.90-2.90); Lymphocytes Percent Auto 31.6 % (20-44); Mean Corpuscular HGB Conc 32 gm/dL (32-36); Mean Corpuscular Hemoglobin 29 pg (26-34); Mean Corpuscular Volume 88 fL (80-100); Monocytes Percent Auto 5.7 % (0.0-11.0); Neutrophils Absolute Auto 2.69 K/uL (1.7-7.0); Platelet Count* 268 K/uL (140-440); RDW Coefficient of Variation % 14.2 % (11.5-15.5); Red Blood Count 4.69 m/uL (4.00-5.20); White Blood Count* 4.72 K/uL (4.50-11.00)
--- NOTE | 2024-12-16 16:00 | CRLHL7_ITS ---
For Patients: As a result of the Century Cures Act, medical imaging exams and procedure reports are released immediately into your electronic medical record. You may view this report before your referring provider. If you have questions, please contact your health care provider. INDICATION: Left lower quadrant pain TECHNIQUE: CT abdomen and pelvis acquired without and with 100 mL Isovue 370 IV contrast. COMPARISON: None. FINDINGS: Lower chest: 8 mm nodule in the medial right lower lobe on image 34 of series 3. 4.5 x 2.8 cm subcarinal mass, likely adenopathy. Liver: Tiny low-density lesion in the superior right hepatic lobe too small to characterize but most likely benign. Gallbladder and bile ducts: Unremarkable. No stones or inflammation. No biliary dilatation. Pancreas: Unremarkable. No mass or inflammation. Spleen: Unremarkable. Normal in size. No masses. Adrenal glands: Unremarkable. No nodules. Kidneys: Cysts in the left kidney. GI tract: Postop changes in the stomach. Small hiatal hernia. Appendectomy. Vasculature: Unremarkable. Mesenteric arteries are patent. Lymph nodes: No lymphadenopathy. Omentum/Peritoneum/Abdominal Wall: Unremarkable. No sign of mass or infiltration. No free air or significant free fluid. Pelvis: Unremarkable. Bones: Unremarkable for age. IMPRESSION: 1. Right lower lobe pulmonary nodule and subcarinal mass/adenopathy. Recommend IV contrast-enhanced chest CT. 2. No cause for left lower quadrant pain identified. Please note that all CT scans at this facility use dose modulation, iterative reconstruction, and/or weight-based dosing when appropriate to reduce radiation dose to as low as reasonably achievable. Dictated by Sunday Blanc MD @ 12/18/2024 1:18:02 PM (Electronically Signed)
[2024-12-16 16:02] LABS: Slide Review Reflex No
[2024-12-16 16:29] LABS: Creatinine* 0.8 mg/dL (0.5-1.5); Estimated Glomerular Filt Rate 80 ml/min
== END 2024-12-16 15:28 | disposition home or self-care (01) ==
PROVIDERS: PCP Internal Medicine; Visit Provider Internal Medicine Gastroenterology
DX: R10.32 Left lower quadrant pain (principal); R91.1 Solitary pulmonary nodule
CPT/HCPCS: 36415; 74178; 82565; 85025; Q9967

== ENCOUNTER 2025-01-08 15:07 | Outpatient (CLI) | payer MEDICARE, BC, SELFPAY ==
--- NOTE | 2025-01-08 15:30 | CRLHL7_ITS ---
For Patients: As a result of the Century Cures Act, medical imaging exams and procedure reports are released immediately into your electronic medical record. You may view this report before your referring provider. If you have questions, please contact your health care provider. DXA BONE MINERAL DENSITY STUDY Reason for exam: Other specified disorders of bone density and structure. Current height (in): 64. Weight (lb): 215. Menopause age: 56. Ethnicity: White. 1. Have you had a previous hip or vertebral fracture? No. 2. Have you had any fractures during your adult life which did not result from significant trauma (e.g., auto accident)? No. 3. Did either of your parents have a hip fracture? No. 4. Do you smoke? No. 5. Have you ever taken Glucocorticoids? No. 6. Do you have rheumatoid arthritis? No. 7. Do you have secondary osteoporosis? No. 8. Do you drink 3 or more alcoholic drinks per day? No. 9. Are you being treated for osteoporosis? No. 10. Have you ever taken any of the following medications: Actonel, Evista, Fosamax, Miacalcin, Reclast, Boniva, Forteo, HRT (i.e. estrogen/hormone therapy), Protelos, Prolia, Vitamin D, Calcium, other ??? please specify. ANSWER: Yes, vitamin D and calcium. 11. Do you have any of the following medical conditions: Anorexia or bulimia, asthma or emphysema, end stage renal disease, hyperparathyroidism, any seizure disorders, cancer, inflammatory bowel diseases, hysterectomy, other ??? please specify. ANSWER: Yes, asthma or emphysema and inflammatory bowel diseases 12. What was your maximum height (inches)? 66. 13. Do you perform weight bearing exercise regularly? Yes. 14. Do you regularly consume dairy products? Yes. 15. Do you drink caffeinated beverages? Yes. 16. At what age did your period start? 13. 17. Are you premenopausal? No. 18. How many full-term pregnancies have you had? 5. 19. Have you ever missed your period for more than 6 months in a row (not including or menopause)? No. TECHNIQUE: Bone mineral density study was performed using the [employer]. FINDINGS: The results of the study expressed as bone mineral density (BMD) are as follows: Lumbar spine L1 to L4: BMD: 0.936 g/cm2. T-score: -1.0. Z-score: 1.0. Neck Left: BMD: 0.638 g/cm2. T-score: -1.9. Z-score: -0.2. Right: BMD: 0.664 g/cm2. T-score: -1.7. Z-score: 0.1. Total Left: BMD: 0.649 g/cm2. T-score: -2.4. Z-score: -1.0. Right: BMD: 0.695 g/cm2. T-score: -2.0. Z-score: -0.6. IMPRESSION: Osteopenia. *Comparison exams done prior to 12/2019 were performed on different unit, mySkin. COMPARISON: Compared with scan of 12/16/2021, the bone mineral density has decreased by 3.1 percent at the spine and increased by 0.4 percent at the hip. FRAX 10-year Fracture Risk Major Osteoporotic Fracture: 9.8 percent Hip Fracture: 1.5 percent Reported Risk Factors: [place] () Neck BMD=0.638, BMI=36.9 Conner Valdez M.D. Diagnostic Radiologist [email or web address] [email or web address] [email or web address]/Dictated by: Conner Valdez MD @ 01/09/2025 8:54:00 AM (Electronically Signed)
--- NOTE | 2025-01-08 16:00 | CRLHL7_ITS ---
For Patients: As a result of the Century Cures Act, medical imaging exams and procedure reports are released immediately into your electronic medical record. You may view this report before your referring provider. If you have questions, please contact your health care provider. INDICATION: .RT LOWER LOBE PULMONARY NODULE TECHNIQUE: CT chest was acquired with 75 cc Isovue 370 IV contrast. COMPARISON: Abdominal CT December 2024. FINDINGS: Lungs and Airways: Stable 7 millimeter right lower lobe subpleural indeterminate nodule in the right lung base. This abuts fibrotic change secondary to adjacent exuberant osteophytosis. May represent a component nodular atelectasis/fibrotic change, however remains indeterminate. No mass or consolidation. No endoluminal lesion. Heart and Mediastinum: The visualized portions of the thyroid are normal. No axillary or supraclavicular lymphadenopathy. No definite mediastinal, hilar or retrocrural lymphadenopathy. Normal heart size. Normal caliber aorta. Atherosclerotic calcifications. Subcarinal rounded focus measuring up to 47 by 28 millimeters, and approximately 60 Hounsfield units. This is well-circumscribed. Pleura: The pleural spaces are normal. Abdomen: Small hiatal hernia. Changes of gastric sleeve. Bones and soft tissues: Right shoulder arthroplasty. Left shoulder fixation screws. IMPRESSION: 1. Stable 7 millimeter right lower lobe subpleural indeterminate nodule in the right lung base. This abuts fibrotic change secondary to adjacent exuberant osteophytosis. May represent a component nodular atelectasis/fibrotic change, however remains indeterminate. Recommend unenhanced chest CT in approximately 3-6 months to document stability and to assess underlying malignant potential. 2. Subcarinal rounded focus measuring up to 47 by 28 millimeters, and approximately 60 Hounsfield units. This is well-circumscribed. Leading differential considerations include mediastinal mass such as a pericardial cyst versus esophageal duplication cyst. Less likely lymphadenopathy. Recommend nonemergent dedicated chest MRI with and without contrast for further characterization/confirmation. Please note that all CT scans at this facility use dose modulation, iterative reconstruction, and/or weight-based dosing when appropriate to reduce radiation dose to as low as reasonably achievable. Dictated by Conner Osei MD @ 01/08/2025 4:07:49 PM (Electronically Signed)
--- OUTSIDE RECORDS SUMMARY | 2025-01-09 00:27 | XMS_ITS | Clinical Summary ---
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 Gender Identity Not on file Sexual Orientation [...] 97.5 kg (215 lb) 06/10/2020 10:02 AM PHOTOGRAMMETRY AIRPLANE PILOT Height 164.6 cm (5' 4.8) 03/11/2016 9:37 AM CDT Body Mass Index 36 03/11/2016 9:37 AM CDT Plan of Treatment Health Maintenance Due Date Last Done Comments Depression screening for age 12+ 1968 Hepatitis C screening for ag e 18-79 1974 Pneumococcal series for age 50+ [...] ( season) 2024 08/03/2021, 10/30/2020, 10/02/2020 Influenza Vaccine (Season Ended) 2025 RSV vaccine for adults or (1 - 1-dose 75+ series) 2031 Tdap Completed 12/03/2007 Hepatitis B series for 19+ Aged Out N o longer eligible based on patient's age to complete this topic Procedures Procedure Name Priority Date/Time Associated Diagnosis [...] CDT) CHOLESTEROL,TOTAL 227(H) 110 - 199 mg/dL [facility] TRIGLYCERIDES 102 <150 mg/dL [facility] HDL CHOLESTEROL 53 >40 mg/dL [facility] CHOL/HDL RATIO 4.28 <4.51 [facility] LDL CHOLESTEROL 154(H) <131 mg/dL [facility] PATIENT STATUS Fasting [facility] 12/19/2005 8:1 3 AM CDT 12/19/2005 8:13 AM CDT Irving Lindsey MD CHEMISTRY Final Result [facility] [address] [place] [address] from Last 3 Months or Most Recently Relevant to Health Maintenance Insurance [employer] BLUE MR PB ONLY Care Teams Table Worker Relationship Specialty Start Date End Date Mckinley Reich MD [address] [place] [address] PCP - General Emergency Medicine 07/04/16
--- OUTSIDE RECORDS SUMMARY | 2025-01-09 00:27 | XMS_ITS ---
Author Name Interface, [id number] lity Address [address] [place], [place] [id number] [facility] Address [facility] [place] [address] Allergies and Adverse Reactions Plan Reason for Visit Encounters Immunizations Medications Problems Vital Signs Notes Section
--- OUTSIDE RECORDS SUMMARY | 2025-01-09 00:27 | XMS_ITS | CCD ---
Author Name Interface, [id number] lity Address [address] [place] [address] [facility] Address [address] [address] Care Team Providers Care Adoption Specialist Name Role Phone Orville BOOGIE, Domenico Unavailable Unavailable Allergies and Adverse Reactions Care Plan Reason for Visit Encounters Functional Status Immunizations Diagnostic Results Medications Problems Social History Vital Signs Notes Section
== END 2025-01-08 15:08 | disposition home or self-care (01) ==
LOC: RAD 15:09
PROVIDERS: PCP Internal Medicine; Visit Provider Internal Medicine
DX: R91.1 Solitary pulmonary nodule (principal); K44.9 Diaphragmatic hernia without obstruction or gangrene; M85.88 Other specified disorders of bone density and structure, other site; M85.89 Other specified disorders of bone density and structure, multiple sites
CPT/HCPCS: 71260; 77080; Q9967

== ENCOUNTER 2025-01-09 09:45 | Outpatient (RCR) | payer MEDICARE, BC, SELFPAY | END 2025-05-09 23:59 | disposition home or self-care (01) | PROVIDERS: PCP Internal Medicine; Visit Provider Student in an Organized Health Care Education/Training Program | DX: S42.302D Unspecified fracture of shaft of humerus, left arm, subsequent encounter for fracture with routine healing (principal); S42.201D Unspecified fracture of upper end of right humerus, subsequent encounter for fracture with routine healing; M25.511 Pain in right shoulder; Z51.89 Encounter for other specified aftercare | CPT/HCPCS: 97110; 97140; 97163 ==

== ENCOUNTER 2025-02-05 12:46 | Outpatient (CLI) | payer MEDICARE, BC, SELFPAY ==
--- NOTE | 2025-02-05 13:00 | CRLHL7_ITS ---
For Patients: As a result of the Cures Act, medical imaging exams and procedure reports are released immediately into your electronic medical record. You may view this report before your referring provider. If you have questions, please contact your health care provider. INDICATION: Mediastinal mass. COMPARISON: Chest CT scans dated 08 January 2025 and 26 June 2023. TECHNIQUE: MRI of the chest with T1 in- and out of phase, T2, and postcontrast images. Intravenous gadolinium administered. Findings : 4.3 x 4.3 x 2.9 cm subcarinal mass shows increased T1 signal and no enhancement, is unchanged. No other mediastinal masses. No lung masses identified. No other bony or soft tissue abnormalities identified. Impression : 1. 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 Dictated by Sage Subramanian MD @ 02/06/2025 5:54:02 PM (Electronically Signed)
== END 2025-02-05 12:47 | disposition home or self-care (01) ==
LOC: MRI 12:46
PROVIDERS: PCP Internal Medicine; Visit Provider Internal Medicine
DX: J98.59 Other diseases of mediastinum, not elsewhere classified (principal); J98.4 Other disorders of lung
CPT/HCPCS: 73220; A9575

== ENCOUNTER 2025-06-04 12:45 | Outpatient (CLI) | payer MEDICARE, BC, SELFPAY ==
--- NOTE | 2025-06-04 13:00 | CRLHL7_ITS ---
For Patients: As a result of the Century Cures Act, medical imaging exams and procedure reports are released immediately into your electronic medical record. You may view this report before your referring provider. If you have questions, please contact your health care provider. Indication: Fracture follow-up. Technique: Two views left humerus Comparison: 08/30/2024. Findings/Impression: Internally fixed fracture of the left humerus. Hardware appears well positioned, without evidence of loosening or failure. Healing appears complete/near complete. No acute complication visible. Dictated by Alexandre Rushing MD @ 06/04/2025 3:07:22 PM (Electronically Signed)
== END 2025-06-04 12:46 | disposition home or self-care (01) ==
PROVIDERS: PCP Internal Medicine
DX: S42.302A Unspecified fracture of shaft of humerus, left arm, initial encounter for closed fracture (principal)
CPT/HCPCS: 73060

== ENCOUNTER 2025-06-19 07:53 | Outpatient (CLI) | payer MEDICARE, BC, SELFPAY ==
--- NOTE | 2025-06-19 08:15 | CRLHL7_ITS ---
For Patients: As a result of the Century Cures Act, medical imaging exams and procedure reports are released immediately into your electronic medical record. You may view this report before your referring provider. If you have questions, please contact your health care provider. INDICATION: F/U Thyroid Nodules COMPARISON: 06/10/2024 TECHNIQUE: Medina scale and color Doppler images were acquired of the thyroid gland. FINDINGS: Solid nodule left thyroid lobe measures 13 x 11 x 8 millimeters, isoechoic, TR 3. Similar isoechoic solid nodule left thyroid lobe measures 13 x 11 x 9 millimeters, TR 3. Slightly hypoechoic nodule left thyroid lobe measures 8 x 6 x 6 millimeters, TR 4. Hypoechoic nodule right thyroid lobe measures 10 x 6 x 12 millimeters, TR 4. Solid heterogeneous nodule right thyroid lobe inferior pole measures 2.2 x 1.7 x 1.6 cm, TR 4. Additional right thyroid lobe nodule measures 2.2 x 1.6 x 2.3 cm, TR 4. The right lobe measures 5.1 x 2.0 x 2.7 cm and the left lobe measures 3.6 x 1.3 x 1.4 cm in size. The color Doppler images demonstrate normal vascularity. There is no evidence of cervical lymphadenopathy or parathyroid mass. IMPRESSION: Juxtaposed nodules in the right thyroid lobe measure in total 3.2 cm in maximum dimension, previously measuring 2.6 cm in maximum dimension. The nodules appear morphologically similar and have been previously biopsied. Left-sided thyroid nodules are unchanged. Dictated by Conner Valdez MD @ 06/19/2025 11:33:24 AM (Electronically Signed)
== END 2025-06-19 07:54 | disposition home or self-care (01) ==
LOC: US 07:54
PROVIDERS: PCP Internal Medicine; Visit Provider Surgery
DX: E04.1 Nontoxic single thyroid nodule (principal)
CPT/HCPCS: 76536

== ENCOUNTER 2025-06-30 09:46 | Outpatient (CLI) | payer MEDICARE, BC, SELFPAY ==
--- NOTE | 2025-06-30 10:00 | CRLHL7_ITS ---
For Patients: As a result of the Century Cures Act, medical imaging exams and procedure reports are released immediately into your electronic medical record. You may view this report before your referring provider. If you have questions, please contact your health care provider. Indication: Lung nodule follow-up Technique: Noncontrast CT chest Please note that all CT scans at this facility use dose modulation, iterative reconstruction, and/or weight-based dosing when appropriate to reduce radiation dose to as low as reasonably achievable. Comparison: 01/08/2025 Findings: Numerous subcentimeter mediastinal lymph nodes are again noted. Similar mass in the subcarinal space. No pericardial effusion. Postop changes of gastric sleeve. Stable sub cm lymph nodes adjacent to the distal thoracic aorta and within the upper retroperitoneum. Vascular calcifications. Right shoulder replacement hardware. No infiltrate or edema. No effusion or pneumothorax. Mild scarring in the subpleural lung right lower lobe medially. No suspicious pulmonary nodule. Degenerative disc disease. No vertebral body compression fracture. Intact ribs. Impression: Subpleural scarring with nodularity medial right lower lobe, considered benign. Stable subcarinal cyst. Please note that all CT scans at this facility use dose modulation, iterative reconstruction, and/or weight-based dosing when appropriate to reduce radiation dose to as low as reasonably achievable. Dictated by Conner Valdez MD @ 06/30/2025 11:26:21 AM (Electronically Signed)
== END 2025-06-30 09:47 | disposition home or self-care (01) ==
LOC: CT 09:47
PROVIDERS: PCP Internal Medicine; Visit Provider Internal Medicine
DX: R91.8 Other nonspecific abnormal finding of lung field (principal); Z87.891 Personal history of nicotine dependence; Z98.890 Other specified postprocedural states; M25.511 Pain in right shoulder; Z96.611 Presence of right artificial shoulder joint; M48.061 Spinal stenosis, lumbar region without neurogenic claudication; I70.90 Unspecified atherosclerosis
CPT/HCPCS: 71250

== ENCOUNTER 2025-07-09 09:56 | Outpatient (CLI) | payer MEDICARE, BC, SELFPAY ==
--- NOTE | 2025-07-09 10:15 | CRLHL7_ITS ---
For Patients: As a result of the Century Cures Act, medical imaging exams and procedure reports are released immediately into your electronic medical record. You may view this report before your referring provider. If you have questions, please contact your health care provider. INDICATION: BILATERAL SCREENING MAMMOGRAM, ASYMPTOMATIC 70 Y/O FEMALE COMPARISON: 07/08/2024, 06/26/2023, 04/13/2022 TECHNIQUE: Digital mammogram in CC and MLO projections including computer-aided detection (CAD) and tomosynthesis. BREAST COMPOSITION: There are scattered areas of fibroglandular density. FINDINGS: No suspicious findings. ASSESSMENT: BI-RADS 1 Negative RECOMMENDATION: Annual screening mammogram. A lay language report of this examination will be provided to the patient. Dictated by: Lexi Blanca MD @ 07/11/2025 14:24:25 (Electronically Signed)
== END 2025-07-09 09:57 | disposition home or self-care (01) ==
LOC: MAMMO 09:57
PROVIDERS: PCP Internal Medicine; Visit Provider Internal Medicine
DX: Z12.31 Encounter for screening mammogram for malignant neoplasm of breast (principal)
CPT/HCPCS: 77063; 77067